=== PATIENT | female | born 1995 | race African-American/Black ===

== ENCOUNTER → 2020-01-04 13:07 | Outpatient (BNVA) | payer OTHER, SELFPAY | PROVIDERS: Visit Provider Obstetrics & Gynecology | DX: N92.6 Irregular menstruation, unspecified (principal) | CPT/HCPCS: 99212 ==

== ENCOUNTER 2020-03-20 12:53 | Outpatient (REF) | payer OTHER, SELFPAY ==
--- NOTE | 2020-03-20 13:02 | XR_ITS ---
EXAMINATION: XR KNEE, LEFT CLINICAL INFORMATION: Pain COMPARISON: None TECHNIQUE: Four views of the left knee. FINDINGS: Bone alignment is normal. No fracture or dislocation is seen. The joint spaces are normal. There is question of a subchondral cyst in the inferior patella. This measures 5 x 10 mm. There is no joint effusion. XR/XR knee LT 4V IMPRESSION: Question small subchondral cyst in the inferior patella otherwise unremarkable exam.
== END 2020-03-20 12:54 | disposition home or self-care (01) ==
LOC: HO.XRAY 12:53
PROVIDERS: Visit Provider Internal Medicine
DX: M25.562 Pain in left knee (principal)
CPT/HCPCS: 73564

== ENCOUNTER 2020-03-27 09:58 | Outpatient (REF) | payer OTHER, SELFPAY ==
[2020-03-28 13:32] LABS: C. trachomatis RNA TMA NOT DETECTED (NOT DETECTED); N. gonorrhoeae RNA TMA NOT DETECTED (NOT DETECTED)
== END 2020-03-27 09:59 | disposition home or self-care (01) ==
LOC: HO.LAB 09:58
PROVIDERS: PCP Internal Medicine; Visit Provider Advanced Practice Midwife
DX: Z01.419 Encounter for gynecological examination (general) (routine) without abnormal findings (principal); N94.6 Dysmenorrhea, unspecified; Z80.3 Family history of malignant neoplasm of breast
CPT/HCPCS: 36415; 87491; 87591; 88142

== ENCOUNTER → 2020-04-13 11:06 | Outpatient (BNVA) | payer OTHER, SELFPAY | PROVIDERS: Visit Provider Physician Assistant | DX: M70.42 Prepatellar bursitis, left knee (principal) | CPT/HCPCS: 99202 ==

== ENCOUNTER → 2020-05-11 11:24 | Outpatient (BNVA) | payer OTHER, SELFPAY | PROVIDERS: PCP Internal Medicine; Visit Provider Physician Assistant | DX: M70.42 Prepatellar bursitis, left knee (principal) | CPT/HCPCS: 99212 ==

== ENCOUNTER → 2020-05-15 09:04 | Outpatient (BNVA) | payer OTHER, SELFPAY | PROVIDERS: PCP Internal Medicine; Visit Provider Advanced Practice Midwife ==

== ENCOUNTER 2020-05-24 08:00 | Outpatient (RCR) | payer OTHER, SELFPAY ==
--- NOTE | 2020-04-24 15:48 | MHC.PT.EP ---
[facility] [place] Office [place] Office [place] Office [address] Mitul Armando [address] [phone] F: [phone] F: [phone] F: [phone] F: [phone] Physical Therapy Plan of Care Date of Evaluation: 04/24/20 Date of Surgery: NA Diagnosis: PERIPATELLAR BUSITIS 05/11 MD FOLLOW-UP Assessment: D'ANDRES ARRIVES S/P FALL WITH ROTATIONAL LUIS. UPON EXAM SHE DEMONSTRATES LATERAL LAXITY AND PAIN AND EDEMA THRU JOINT; SHE DEMONSTRATES IMPAIRMENTS OF DECREASED ROM AND STRENGTH, ALTERED GAIT AND BALANCE, INCREASED EDEMA AND PAIN. FUNCTIONAL LIMITATIONS INCLUDE DECREASED ABILITY TO PERFORM SQUATTING, STATIC STANDING AND STAIR MANAGEMENT. SHE REPORTS DECREASED PARTICIPATION IN FITNESS AND RECREATION ACTIVITIES, DECREASED ABILTIY TO PERFORM WORK TASKS AND DISRUPTED SLEEP. Frequency and Duration: The patient will be seen 2 X WEEK FOR 5 WEEKS Short Term Goals: INITIATE HEP AND SELF MANAGEMENT OF SYMPTOMS IN 2 WEEKS Tub Puller Goals: TO PERFORM FULL FUNCTIONAL SQUAT WITH APPROPRIATE FORM IN 5 WEEKS TO RETURN TO FITNESS PROGRAM AT [facility] IN 5 WEEKS TO DEMONSTRATE LIFTING FROM FLOOR TO WAIST WITH A MINIMUM OF 20# WITH CORRECT BODY MECHANICS AND PAIN NO GREATER THAN 2/10 IN 5 WEEKS TO DEMONSTRATE FULL (5/5) LE STRENGTH, EQUAL MIO IN 5 WEEKS Treatment Plan: Modalities to reduce pain, spasms and effusion. Manual therapy to restore motion and function. Therapeutic exercise to improve strength and flexibility. Neuromuscular re-education for posture and balance. Therapeutic activities to return to functional activities of daily living. Electronically signed by: FEROZ HUMMEL PT, DPT Please sign and return to therapist. Thank you for your referral.
== END 2020-06-27 09:00 | disposition other institution (70) ==
LOC: HO.PT 08:00
PROVIDERS: PCP Internal Medicine; Visit Provider Physician Assistant
DX: M70.42 Prepatellar bursitis, left knee (principal)
CPT/HCPCS: 97014; 97033; 97110; 97112; 97140; 97161

== ENCOUNTER 2020-06-14 13:54 | Outpatient (REF) | payer OTHER, SELFPAY ==
--- NOTE | ~2020-06-14 | US_ITS ---
EXAMINATION: US DIAGNOSTIC ULTRASOUND BREAST, RIGHT CLINICAL INFORMATION: Several months history upper right breast pain. Age 25. No prior breast imaging. Family history breast cancer grandmother is a maternal aunt. No discharge or palpable mass. COMPARISON: None. TECHNIQUE: Ultrasound right breast is targeted to the areas of clinical concern with imaging 7:00 through 3:00 position. Grayscale imaging and color Doppler are performed without and with harmonics. FINDINGS: There is no focal suspicious finding. There is no cystic or solid mass, architectural abnormality, duct ectasia, or edema in the soft tissue planes. Results are discussed with the patient at time of visit. The right breast pain should be managed based on the clinical impression. US/US breast RT limited IMPRESSION: Normal study. ASSESSMENT: BI-RADS 1: Negative RECOMMENDATION: 1. Patient's right breast pain should be managed based on the clinical impression. If there is clinically suspicious finding, then surgical consult may be considered for further clinical assessment and management. 2. Otherwise, routine annual screening mammography, beginning age 40, or earlier as clinical risk factors warrant. This patient's information was entered into a reminder system with a target due date for their next mammogram.
== END 2020-06-14 13:55 | disposition home or self-care (01) ==
LOC: HO.MAMMO 13:54
PROVIDERS: PCP Internal Medicine; Visit Provider Advanced Practice Midwife
DX: N64.4 Mastodynia (principal)
CPT/HCPCS: 76642

== ENCOUNTER → 2020-06-28 11:35 | Outpatient (BNVA) | payer OTHER, SELFPAY | PROVIDERS: PCP Internal Medicine; Visit Provider Advanced Practice Midwife ==

== ENCOUNTER 2021-03-28 10:22 | Outpatient (REF) | payer OTHER, SELFPAY ==
[2021-03-28 15:50] LABS: CT PCR NOT DETECTED (Not Detect.); NG PCR NOT DETECTED (Not Detect.)
== END 2021-03-28 10:23 | disposition home or self-care (01) ==
LOC: HO.LNP 10:22
PROVIDERS: PCP Internal Medicine; Visit Provider Advanced Practice Midwife
DX: Z01.419 Encounter for gynecological examination (general) (routine) without abnormal findings (principal); Z11.3 Encounter for screening for infections with a predominantly sexual mode of transmission
CPT/HCPCS: 87491; 87591

== ENCOUNTER 2021-05-28 09:45 | Outpatient (REF) | payer OTHER, SELFPAY ==
[2021-05-28 10:02] LABS: MANUAL DIFF FLAG NO
[2021-05-28 10:33] LABS: Appearance Urine CLEAR; Color Urine YELLOW; Glucose Urine UA NEG (NEG); Leukocyte Esterase Urine NEG (NEG); Nitrite Urine NEG (NEG); Specific Gravity - Urine 1.015 (1.005-1.025); Urine Blood NEG (NEG); Urine Ketones NEG (NEG); Urine Protein NEG (NEG-TRACE)
[2021-05-28 10:46] LABS: Basophils Percent Auto 0.4 % (0-2); Eosinophils Absolute Auto 0.3 X10*3/uL (0.0-0.4); Eosinophils Percent Auto 5.9 % (0-4); Hematocrit 36.8 % (37.0-47.0); Hemoglobin 11.5 g/dl (12.0-16.0); Imm Gran Abs Auto 0.03 X10*3/uL (0.00-0.03); Imm Gran Pct Auto 0.6 % (0.0-0.4); Lymphocytes Absolute Auto 1.8 X10*3/uL (1.2-4.9); Lymphocytes Percent Auto 35.2 % (20-40); Mean Corpuscular HGB Conc 31.3 g/dl (31.0-35.0); Mean Corpuscular Hemoglobin 25.7 pg (27.0-33.0); Mean Corpuscular Volume 82.3 fL (80.0-98.0); Mean Platelet Volume 9.5 fL (9.4-12.3); Monocytes Absolute Auto 0.3 X10*3/uL (0.1-1.2); Monocytes Percent Auto 5.5 % (2-11); Neutrophils Absolute Auto 2.7 x10*3/uL (2.0-8.3); Neutrophils Percent Auto 52.4 % (45-73); Platelet Count 312 X10*3/uL (160-400); Red Blood Count 4.47 X10*6/uL (4.20-5.50); Red Cell Distribution Width 14.9 % (11.0-16.0); White Blood Count 5.1 X10*3/uL (4.8-10.8)
[2021-05-28 11:22] LABS: Alanine Aminotransferase 11 U/L (0-31); Albumin Level 4.1 g/dL (3.5-5.0); Alkaline Phosphatase 96 U/L (39-117); Anion Gap 14 (12-20); Aspartate Amino Transferase 15 U/L (5-31); Bilirubin Total 0.7 mg/dL (0.0-1.0); Blood Urea Nitrogen 11 mg/dL (9-16); Calcium 9.2 mg/dL (8.4-10.2); Carbon Dioxide 20 mmol/L (22-29); Chloride 107 mmol/L (96-108); Cholesterol 170 mg/dL; Estimated Glomerular Filt Rate > 60; Glucose Random 81 mg/dL (60-115); HDL Cholesterol 52 mg/dL; LDL Cholesterol Calculated 101 mg/dl; Potassium 4.5 mmol/L (3.3-5.1); Sodium 136 mmol/L (135-145); Total Protein 7.7 g/dL (6.5-8.0); Triglycerides 88 mg/dL
[2021-05-28 11:45] LABS: Free T4 (Free Thyroxine) 1.19 ng/dL (0.71-1.85); Thyroid Stimulating Hormone 0.79 uIU/mL (0.32-4.0); Vitamin D 25-OH Total 6.1 ng/mL (>30)
== END 2021-05-28 09:46 | disposition home or self-care (01) ==
LOC: HO.LAB 09:45
PROVIDERS: PCP Internal Medicine; Visit Provider Internal Medicine
DX: Z13.220 Encounter for screening for lipoid disorders (principal); E05.00 Thyrotoxicosis with diffuse goiter without thyrotoxic crisis or storm; J45.909 Unspecified asthma, uncomplicated; E55.9 Vitamin D deficiency, unspecified
CPT/HCPCS: 36415; 80053; 80061; 81003; 82306; 84439; 84443; 85025

== ENCOUNTER 2021-06-25 15:26 | Outpatient (REF) | payer OTHER, SELFPAY ==
[2021-06-25 16:15] LABS: MANUAL DIFF FLAG NO
[2021-06-25 16:25] LABS: Basophils Percent Auto 0.5 % (0-2); Eosinophils Absolute Auto 0.3 X10*3/uL (0.0-0.4); Hematocrit 35.3 % (37.0-47.0); Hemoglobin 11.1 g/dl (12.0-16.0); Imm Gran Abs Auto 0.01 X10*3/uL (0.00-0.03); Imm Gran Pct Auto 0.2 % (0.0-0.4); Lymphocytes Absolute Auto 1.8 X10*3/uL (1.2-4.9); Lymphocytes Percent Auto 31.4 % (20-40); Mean Corpuscular HGB Conc 31.4 g/dl (31.0-35.0); Mean Corpuscular Hemoglobin 25.2 pg (27.0-33.0); Monocytes Absolute Auto 0.4 X10*3/uL (0.1-1.2); Neutrophils Absolute Auto 3.3 x10*3/uL (2.0-8.3); Neutrophils Percent Auto 56.9 % (45-73); Platelet Count 282 X10*3/uL (160-400); Red Blood Count 4.41 X10*6/uL (4.20-5.50); Red Cell Distribution Width 14.9 % (11.0-16.0); White Blood Count 5.8 X10*3/uL (4.8-10.8)
== END 2021-06-25 15:27 | disposition home or self-care (01) ==
LOC: HO.LAB 15:26
PROVIDERS: PCP Internal Medicine; Visit Provider Internal Medicine Pulmonary Disease
DX: Z91.09 Other allergy status, other than to drugs and biological substances (principal); J45.909 Unspecified asthma, uncomplicated; G47.33 Obstructive sleep apnea (adult) (pediatric)
CPT/HCPCS: 36415; 85025; 86003

== ENCOUNTER → 2021-08-06 11:20 | Outpatient (REF) | payer OTHER, SELFPAY | LOC: HO.SL 11:20 | PROVIDERS: PCP Internal Medicine; Visit Provider Internal Medicine Pulmonary Disease | DX: G47.33 Obstructive sleep apnea (adult) (pediatric) (principal) | CPT/HCPCS: 95806 ==

== ENCOUNTER → 2022-03-05 15:31 | Outpatient (BNVA) | payer OTHER, SELFPAY | PROVIDERS: PCP Internal Medicine; Visit Provider Internal Medicine Pulmonary Disease | DX: Z13.89 Encounter for screening for other disorder (principal) ==

== ENCOUNTER 2023-03-18 15:45 | Outpatient (AMB) | payer OTHER, SELFPAY ==
[2023-03-18 15:48] VITALS: BP 110/80; PULSE 110; O2SAT 96; BMI 36.9
--- NOTE | 2023-03-18 15:48 | MHC.PC.OV ---
Vital Signs 03/18/23 15:48 Height 5 ft 3 in Weight 208 lb 2 oz BMI 36.9 BP 110/80 Blood Pressure Location Lt brachial Position Sitting Pulse 110 H Pulse Source Pulse Oximeter Pulse Oximetry (%) 96 Oxygen Delivery Method Room Air Intake Visit Reasons: Annual Exam Systems Security Analyst Required: No Accompanied by: Self / Same As Patient Allergies cat dander [CAT] Allergy (Unknown, Verified 03/18/23 16:26) ITCHY EYES SEASONAL ALLERGIES Allergy (Intermediate, Uncoded 03/18/23 16:26) ITCHY EYES Medication List - Last Reconciled 03/18/23 by Tunde Deal MD albuterol sulfate 2.5 mg (3 mL) inhalation QID PRN 30 days albuterol sulfate 90 mcg/actuation 2 puffs inhalation Q6H PRN betamethasone valerate 0.1% 1 appl topical BID PRN 7 days cholecalciferol (vitamin D3) 50 mcg PO DAILY 90 days fluticasone propionate 50 mcg/actuation 1 spray intranasal DAILY hydroxyzine HCl 25 mg PO BEDTIME PRN loratadine 10 mg PO DAILY PRN methimazole 2.5 mg PO DAILY miconazole nitrate 2% 1 spray topical BID PRN 15 days montelukast 10 mg PO QPM [NEBULIZER and all related supplies As directed] nebulizers As directed Symbicort 160-4.5 mcg/actuation (budesonide-formoterol) 2 puffs inhalation BID 30 days NS triamcinolone acetonide 0.025% 1 appl topical BID Tobacco use date assessed: 03/18/23 Dental Screening Dental Screen Date: 03/18/23 Did you have a dental visit in the last 12 months?: Yes Did you have a dental problem in the last 6 months where you did not have access to dental care?: No Was dental information given to patient?: Patient has dentist HPI Annual Exam HPI Details Patient comes in today for her annual physical examination States that she feels okay and that her asthma has been well-controlled on her current medication regimen lately Relates that she has been breaking out in acne lesions over her back off and on for the past few months and would like to know if there is anything she can take or use to keep them from recurring She denies any headaches or dizziness Denies any chest pains, no SOB No nausea/vomiting, no abdominal pain No change in bowel habits noted Denies any acute urinary symptoms She continues to follow up with Dr. Cardoza for her Graves disease/hyperthyrodism and has been clinically stable on Methimazole 2.5 mg daily and now just sees Dr. Cardoza once a year for routine follow up States that she is up-to-date with her annual pap smear and gynecology exam [facility] Medical History (Updated 03/19/23 @ 08:45 by Tunde Deal MD) Vitamin D deficiency Tinea pedis Obesity (BMI 30-39.9) Anxiety Allergic rhinitis Asthma Graves' disease Seasonal allergies Hyperthyroidism Surgical History No pertinent past surgical history Family History Father Healthy adult Mother Healthy adult Maternal Grandmother Breast cancer Paternal Grandmother Breast cancer Maternal Aunt Breast cancer Social History Housing: Apartment Alcohol intake: never Patient Tobacco Use Status: Never used Tobacco e-Cigarette/Vaping Use: Never Used Second Hand Smoke Exposure: No service: No Current occupational status: employed Sexual orientation: Lesbian/Lipscomb/Homosexual Gender identity: Female Cognitive needs: No Hearing needs: No Vision needs: No Female Reproductive History Menstrual Age of Menarche: 13 Questionnaire PHQ-9 Over the last 2 weeks, how often have you been bothered by any of the following problems? 1. Little interest or pleasure in doing things: not at all 2. Feeling down, depressed, or hopeless: not at all 3. Trouble falling or staying asleep, or sleeping too much: not at all 4. Feeling tired or having little energy: not at all 5. Poor appetite or overeating: not at all 6. Feeling bad about yourself - or that you are a failure or have let yourself or your family down: not at all 7. Trouble concentrating on things, such as reading the newspaper or watching television: not at all 8. Moving or speaking so slowly that other people could have noticed. Or the opposite - being so fidgety or restless that you have been moving around a lot more than usual: not at all 9. Thoughts that you would be better off or of hurting yourself in some way: not at all Total score: 0 Depression Screening Interpretation: Negative Depression Screening Done: Yes 16915 - PHQ-9 Billing: Yes Source: Developed by Drs. Max Mcdonald, Charito Ramirez, Allan Davis and colleagues, with an educational bo from [employer]. Thrive Questionnaire Date Thrive assessed: 03/18/23 I am a: Patient What is your living situation today?: I have a steady place to live Within the past 12 months, did the food you bought not last and you didn't have the money to get more?: Never true Within the past 12 months, did you worry whether your food would run out before you got money to buy more?: Never true Do you have trouble paying for medicines?: No Do you have trouble getting transportation to medical appointments?: No Do you have trouble paying your heating and electricity bill?: No Do you have trouble taking care of your child, family member or friend?: No Do you have trouble with day-to-day activities such as bathing, preparing meals, shopping, managing finances, etc.?: No Are you currently unemployed and looking for a job?: No Are you interested in more education?: No Please select the resources that you would like help with: None Currently or been in a relationship where the following occur: no concerns reported AUDIT C Alcohol Use Questionnaire (AUDIT-C) 1. How often do you have a drink containing alcohol?: Never 3. How often do you have six or more drinks on one occasion?: Never Total Score: 0 Score Reviewed/Action Taken: Yes CRISTÓBAL-7 AMB Questionnaire CRISTÓBAL-7 Date CRISTÓBAL - 7 assessed: 03/18/23 Feeling nervous, anxious, or on edge: 0 = Not at all Not being able to stop or control worryin = Not at all Worrying too much about different things: 0 = Not at all Trouble relaxin = Not at all Being so restless that it is hard to sit still: 0 = Not at all Becoming easily annoyed or irritable: 0 = Not at all Feeling afraid as if something awful might happen: 0 = Not at all Total CRISTÓBAL-7 score (0-4 normal; 5-9 mild; 10-14 moderate; 15-21 severe): 0 Source: Developed by Drs. Max Mcdonald, Charito Ramirez, Allan Davis and colleagues, with an educational bo from [employer]. Review of Systems Const Denies chills, Denies fatigue, Denies fever(s), Denies headache(s) and Denies malaise Eyes Denies blurry vision, Denies change in vision, Denies irritation and Denies itchy eyes ENT Denies dysphagia, Denies dizziness, Denies otalgia, Denies headache(s), Denies nasal congestion, Denies neck pain, Denies odynophagia, Denies sinus pain and Denies sore throat Card Denies chest pain, Denies rapid heart rate, Denies irregular heart rhythm, Denies palpitations and Denies dyspnea Resp Denies chest congestion, Denies cough, Denies dyspnea and Denies wheezing GI Denies abdominal pain, Denies bloating, Denies constipation, Denies dysphagia, Denies heartburn, Denies diarrhea, Denies nausea, Denies odynophagia and Denies vomiting Denies hematuria, Denies urinary frequency, Denies dysuria, Denies urinary incontinence and Denies urinary urgency Musc Denies back pain, Denies arthralgias, Denies joint swelling, Denies muscle weakness and Denies neck pain Skin/Breast Reports acne (relates (+) multiple scattered acne lesions over the back, on and off), Denies breast pain, Denies breast mass, Denies change in pigmentation, Denies rash and Denies unusual bruising Neuro Denies dizziness, Denies headache(s) and Denies paresthesias Psych Denies anxiety and Denies depression Endo Denies fatigue and Denies palpitations Gregory/Lymph Denies easy bruising Aller/Immun Denies itchy eyes and Denies wheezing Physical exam (Primary Care) Vital Signs: Last Vital Signs Pulse 110 H 03/18/23 15:48 BP 110/80 03/18/23 15:48 Pulse Ox 96 03/18/23 15:48 Oxygen Delivery Method Room Air 03/18/23 15:48 BMI result Body Mass Index 36.9 Tobacco/Smoking Status: Tobacco use Status Tobacco use date assessed 03/18/23 03/18/23 15:54 Patient Tobacco Use Status Never used Tobacco 03/18/23 15:54 e-Cigarette/Vaping Use Never Used 03/18/23 15:54 PHQ-9: PHQ-9 Score PHQ-9: Total score 0 03/18/23 16:27 Depression Screening Interpretation: Negative Thrive Assessment: Date of Thrive Assessment Date Thrive assessed 03/18/23 03/18/23 15:54 Currently or been in a relationship where the following occur: no concerns reported Const General: no acute distress, alert and awake Orientation/consciousness: patient oriented x3 HENMT Head: Yes normocephalic and Yes atraumatic Ears: external ears normal, TM's normal bilaterally and EAC's normal General nose exam: No nasal discharge present Face and sinus: Yes normal facial exam and Yes sinuses nontender Teeth and gingiva: dentition normal Throat: Yes posterior oropharynx normal and Yes tonsils normal (no TP congestion) Eyes Eyelids: Yes eyelids normal Conjunctivae: conjunctivae normal Pupils: Equal, round and reactive pupils present EOM: EOMs intact bilaterally Neck Neck: Yes no lymphadenopathy and Yes supple Thyroid: Thyroid normal Resp Auscultation: clear to auscultation bilaterally, no rales and no wheezes Cardio Rate: regular rate Rhythm: regular rhythm Heart sounds: no murmurs GI Palpation (GI): Soft to palpation, nontender and No hepatosplenomegaly present Auscultation: normal bowel sounds General: Yes no CVA tenderness Back/Spine/Pelvis Back: no CVA tenderness Thoracic/Lumbar Spine: thoracic and lumbar spine normal to inspection Skin Lesions: no lesions (no acne lesions on her back noted at present) Rashes: no rashes Neuro General: patient oriented x3, moves all extremities, no focal motor deficits and CN's II-XI intact bilaterally Cranial nerves: Yes Equal, round and reactive pupils present Cognition (Neuro): normal cognition Gait exam (Neuro): Normal gait present Extrem General: Yes no clubbing, cyanosis or edema Assessment and Plan Assessment & Plan (1) Annual physical exam: Code(s): Z00.00 - Encounter for general adult medical examination without abnormal findings Plan: Check labs Patient is up-to-date with her annual pap smear and gynecology exam (2) Graves' disease: Comment: Thyroid US done in November 2019 showed (+) diffuse goiter with a non-specific left thyroid nodule and recommend continuing surveillance with regular ultrasound; Had FNA Bx in 03/2021 - results not available Code(s): E05.00 - Thyrotoxicosis with diffuse goiter without thyrotoxic crisis or storm Plan: Patient is clinically stable on current regimen She follows up with Dr. Cardoza at [facility] for this and now sees him once a year for routine follow up and monitoring Continue Methimazole 2.5 mg QD Will check TFTs for follow up (3) Asthma: Code(s): J45.909 - Unspecified asthma, uncomplicated Qualifiers: Asthma severity: unspecified severity Asthma persistence: persistent Asthma complication type: uncomplicated Qualified Code(s): J45.909 - Unspecified asthma, uncomplicated Plan: Patient's asthma appears stable on her current inhaler regimen Continue Symbicort 160-4.5 mcg 2 inhalations BID and Albuterol HFA 1 to 2 inhalations Q 6 hours PRN [place] with [place] [facility] (4) Acne: Code(s): L70.9 - Acne, unspecified Qualifiers: Acne type: unspecified acne Qualified Code(s): L70.9 - Acne, unspecified Plan: She reports breaking out in multiple acne lesions on and off over her back for the past few months Will have her start taking oral Doxycycline 100 mg BID x 10 days BUT have advised her to start taking this ONLY when she breaks out in acne lesions If this continues despite Abx Tx, will then consider prophylactic Tx for a period of time; will also consider referral to dermatology if her condition persists despite above intervention(s) (5) Allergic rhinitis: Code(s): J30.9 - Allergic rhinitis, unspecified Qualifiers: Allergic rhinitis trigger: unspecified Allergic rhinitis seasonality: unspecified Qualified Code(s): J30.9 - Allergic rhinitis, unspecified Plan: Continue Loratadine 10 mg QD PRN, Fluticasone 50 mcg nasal spray QD PRN and Montelukast 10 mg QD (6) Vitamin D deficiency: Code(s): E55.9 - Vitamin D deficiency, unspecified Plan: She has been advised that her Vitamin D level was low on her previous labs and she should be taking supplements to correct this Will start her on Vitamin D3 2000 units QD Will recheck her Vitamin D level for follow up (7) Left knee pain: Code(s): M25.562 - Pain in left knee Qualifiers: Chronicity: acute Qualified Code(s): M25.562 - Pain in left knee Plan: X-rays done in March 2020 revealed (+) small subchondral cyst in the inferior patella; xrays were otherwise normal Has been seen by orthopedics and diagnosed with prepatellar bursitis previously States that her knee symptoms have improved with physical therapy in the past; will refer to PT again as needed (8) Anxiety: Code(s): F41.9 - Anxiety disorder, unspecified Plan: Continue Hydroxyzine 25 mg Q HS PRN (9) Obesity (BMI 30-39.9): Code(s): E66.9 - Obesity, unspecified Plan: Reinforced diet/exercise as tolerated/lose weight Plan Follow up in 6 months Orders: Orders Comprehensive Met. Panel 03/18/23 Z00.00 - Encounter for general adult medical examination without abnormal findings Thyroid Stimulating Hormone 03/18/23 E05.00 - Thyrotoxicosis with diffuse goiter without thyrotoxic crisis or storm, Z00.00 - Encounter for general adult medical examination without abnormal findings Cholesterol 03/18/23 Z00.00 - Encounter for general adult medical examination without abnormal findings Complete Blood Count Auto Diff 03/18/23 D64.9 - Anemia, unspecified, Z00.00 - Encounter for general adult medical examination without abnormal findings Free T4 (Free Thyroxine) 03/18/23 E05.00 - Thyrotoxicosis with diffuse goiter without thyrotoxic crisis or storm, Z00.00 - Encounter for general adult medical examination without abnormal findings Vitamin D 25-OH Total 03/18/23 E55.9 - Vitamin D deficiency, unspecified, Z00.00 - Encounter for general adult medical examination without abnormal findings UA CC w/rflx Micro + Cult 03/18/23 R30.0 - Dysuria, Z00.00 - Encounter for general adult medical examination without abnormal findings Medications: New doxycycline monohydrate To be taken only when acne lesions on back flare up 100 mg PO BID 10 days 20 caps 0RF acne lesions on back cholecalciferol (vitamin D3) 50 mcg PO DAILY 90 days 90 caps 3RF E55.9 - Vitamin D deficiency, unspecified cholecalciferol (vitamin D3) 50 mcg PO DAILY 90 days 90 caps 3RF E55.9 - Vitamin D deficiency, unspecified Coding Level of Care Code Est Pt Prev Care [id number]([id number]) Diagnoses Annual physical exam Z00.00 Graves' disease E05.00 Persistent asthma without complication, unspecified asthma severity J45.909 Asthma severity: unspecified severity Asthma persistence: persistent Asthma complication type: uncomplicated Acne, unspecified acne type L70.9 Acne type: unspecified acne Allergic rhinitis, unspecified seasonality, unspecified trigger J30.9 Allergic rhinitis trigger: unspecified Allergic rhinitis seasonality: unspecified Vitamin D deficiency E55.9 Acute pain of left knee M25.562 Chronicity: acute Anxiety F41.9 Obesity (BMI 30-39.9) E66.9
== END 2023-03-18 16:30 | disposition home or self-care (01) ==
PROVIDERS: PCP Internal Medicine; Visit Provider Internal Medicine
DX: Z00.00 Encounter for general adult medical examination without abnormal findings (principal); E05.00 Thyrotoxicosis with diffuse goiter without thyrotoxic crisis or storm; E66.9 Obesity, unspecified; Z68.36 Body mass index [BMI] 36.0-36.9, adult; J45.909 Unspecified asthma, uncomplicated; L70.9 Acne, unspecified; J30.9 Allergic rhinitis, unspecified; E55.9 Vitamin D deficiency, unspecified; M25.562 Pain in left knee; F41.9 Anxiety disorder, unspecified
CPT/HCPCS: 99395

== ENCOUNTER 2023-03-18 16:35 | Outpatient (REF) | payer OTHER, SELFPAY ==
[2023-03-18 16:51] LABS: MANUAL DIFF FLAG NO
[2023-03-18 18:16] LABS: Basophils Absolute Auto 0.1 X10*3/uL (0.0-0.2); Eosinophils Absolute Auto 0.4 X10*3/uL (0.0-0.4); Eosinophils Percent Auto 7.1 % (0-4); Hematocrit 38.8 % (37.0-47.0); Hemoglobin 12.4 g/dl (12.0-16.0); Imm Gran Abs Auto 0.01 X10*3/uL (0.00-0.03); Imm Gran Pct Auto 0.2 % (0.0-0.4); Lymphocytes Absolute Auto 2.2 X10*3/uL (1.2-4.9); Lymphocytes Percent Auto 41.7 % (20-40); Mean Corpuscular Hemoglobin 25.3 pg (27.0-33.0); Mean Platelet Volume 9.8 fL (9.4-12.3); Monocytes Absolute Auto 0.2 X10*3/uL (0.1-1.2); Monocytes Percent Auto 4.2 % (2-11); Neutrophils Absolute Auto 2.4 x10*3/uL (2.0-8.3); Neutrophils Percent Auto 45.8 % (45-73); Platelet Count 365 X10*3/uL (160-400); Red Blood Count 4.91 X10*6/uL (4.20-5.50); Red Cell Distribution Width 14.3 % (11.0-16.0); White Blood Count 5.2 X10*3/uL (4.8-10.8)
[2023-03-18 18:17] LABS: Appearance Urine Cloudy; Color Urine Yellow; Glucose Urine UA Negative (Negative); Leukocyte Esterase Urine Negative (Negative); Nitrite Urine Negative (Negative); Specific Gravity - Urine >= 1.030 (1.005-1.025); UMIC TRIGGER UACC YES; Urine Blood Large (3+) (Negative); Urine Ketones Trace mg/dL (Negative); Urine Protein Negative (Neg-Trace)
[2023-03-18 18:22] LABS: Bacteria Urine Trace (None Seen); Hyaline Casts Urine 0-2 /LPF (0-2); WBC Urine 0-5 /HPF (0-5)
[2023-03-18 18:36] LABS: Alanine Aminotransferase 13 U/L (0-31); Albumin Level 4.4 g/dL (3.5-5.0); Alkaline Phosphatase 105 U/L (39-117); Anion Gap 12 (12-20); Aspartate Amino Transferase 13 U/L (5-31); Bilirubin Total 0.5 mg/dL (0.0-1.0); Blood Urea Nitrogen 11 mg/dL (9-16); Calcium 9.5 mg/dL (8.4-10.2); Carbon Dioxide 25 mmol/L (22-29); Chloride 105 mmol/L (96-108); Cholesterol 152 mg/dL (<200); Estimated Glomerular Filt Rate > 60; Glucose Random 85 mg/dL (60-115); Potassium 3.8 mmol/L (3.3-5.1); Sodium 138 mmol/L (135-145)
[2023-03-18 18:51] LABS: Free T4 (Free Thyroxine) 1.16 ng/dL (0.71-1.85); Thyroid Stimulating Hormone 0.59 uIU/mL (0.32-4.0)
== END 2023-03-18 16:36 | disposition home or self-care (01) ==
LOC: HO.LAB 16:35
PROVIDERS: PCP Internal Medicine; Visit Provider Internal Medicine
DX: Z00.00 Encounter for general adult medical examination without abnormal findings (principal); E05.00 Thyrotoxicosis with diffuse goiter without thyrotoxic crisis or storm; E55.9 Vitamin D deficiency, unspecified; D64.9 Anemia, unspecified
CPT/HCPCS: 36415; 80053; 81001; 82306; 82465; 84439; 84443; 85025

== ENCOUNTER 2024-01-20 17:01 | Outpatient (AMB) | payer OTHER, SELFPAY ==
[2024-01-20 17:08] VITALS: BP 118/70; PULSE 95; O2SAT 99; BMI 38.3
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
== END 2024-01-20 17:42 | disposition home or self-care (01) ==
PROVIDERS: PCP Internal Medicine; Visit Provider Internal Medicine
DX: S16.1XXA Strain of muscle, fascia and tendon at neck level, initial encounter (principal); S39.012A Strain of muscle, fascia and tendon of lower back, initial encounter; V89.2XXS Person injured in unspecified motor-vehicle accident, traffic, sequela; Z04.3 Encounter for examination and observation following other accident

== ENCOUNTER → 2024-01-20 17:01 | Outpatient (BNVA) | payer OTHER, SELFPAY | PROVIDERS: PCP Internal Medicine; Visit Provider Internal Medicine ==

== ENCOUNTER 2024-03-24 16:07 | Outpatient (AMB) | payer OTHER, SELFPAY ==
--- NOTE | 2024-03-24 16:35 | A.OFFPC_ITS ---
Vital Signs 03/24/24 16:36 Height 5 ft 3 in Weight 223 lb 2 oz BMI 39.5 BP 120/82 Blood Pressure Location Lt brachial Position Sitting Pulse 99 Pulse Source Pulse Oximeter Pulse Oximetry (%) 97 Oxygen Delivery Method Room Air Intake Visit Reasons: annual exam Registered Dietician Required: No Accompanied by: Self / Same As Patient Allergies cat dander [CAT] Allergy (Unknown, Verified 03/24/24 17:04) ITCHY EYES SEASONAL ALLERGIES Allergy (Intermediate, Uncoded 03/24/24 17:04) ITCHY EYES Medication List - Last Reconciled 03/24/24 by Tunde Deal MD albuterol sulfate 2.5 mg (3 mL) inhalation QID PRN 30 days albuterol sulfate 90 mcg/actuation 2 puffs inhalation Q6H PRN betamethasone valerate 0.1% 1 appl topical BID PRN 7 days cholecalciferol (vitamin D3) 50 mcg PO DAILY 90 days doxycycline monohydrate 100 mg PO BID 10 days fluticasone propionate 50 mcg/actuation 1 spray intranasal DAILY hydroxyzine HCl 25 mg PO BEDTIME PRN 90 days loratadine 10 mg PO DAILY PRN methimazole 2.5 mg PO DAILY miconazole nitrate 2% 1 spray topical BID PRN 15 days montelukast 10 mg PO QPM 90 days [NEBULIZER and all related supplies As directed] nebulizers As directed Symbicort 160-4.5 mcg/actuation (budesonide-formoterol) 2 puffs inhalation BID 30 days NS triamcinolone acetonide 0.025% 1 appl topical BID Tobacco use date assessed: 03/24/24 Dental Screening Dental Screen Date: 03/24/24 Did you have a dental visit in the last 12 months?: No Did you have a dental problem in the last 6 months where you did not have access to dental care?: No Was dental information given to patient?: Patient has dentist HPI annual exam HPI Details Patient comes in today for her annual physical examination States that she has been experiencing on and off pain over her right breast for a few weeks now Notes that the pain is mostly over the side of the breast just under the right axilla States that she has not noticed any masses or unusual lesions over her right breast lately and relates no swelling over her breast She also denies any recent injury or trauma to the side of her right breast / chest wall States that she feels okay otherwise She denies any headaches or dizziness Denies any chest pains, no increased shortness of breath No nausea/vomiting, no abdominal pain No change in bowel habits noted She denies any acute urinary symptoms She needs a few of her Rx refilled She last had her annual pap smear and gynecology exam back on 03/28/2020; she has an appointment scheduled with her cigar packer and sorter next month (April 2024) for follow up [facility] Medical History Vitamin D deficiency Tinea pedis Obesity (BMI 30-39.9) Anxiety Allergic rhinitis Asthma Graves' disease Seasonal allergies Hyperthyroidism Surgical History No pertinent past surgical history Family History Father Healthy adult Mother Healthy adult Maternal Grandmother Breast cancer Paternal Grandmother Breast cancer Maternal Aunt Breast cancer Social History Housing: Apartment Alcohol intake: never Patient Tobacco Use Status: Never used Tobacco e-Cigarette/Vaping Use: Never Used Second Hand Smoke Exposure: No service: No Current occupational status: employed Sexual orientation: Lesbian/Lipscomb/Homosexual Gender identity: Female Cognitive needs: No Hearing needs: No Vision needs: No Female Reproductive History Menstrual Age of Menarche: 13 Questionnaire PHQ-9 Over the last 2 weeks, how often have you been bothered by any of the following problems? 1. Little interest or pleasure in doing things: more than half the days 2. Feeling down, depressed, or hopeless: not at all 3. Trouble falling or staying asleep, or sleeping too much: not at all 4. Feeling tired or having little energy: several days 5. Poor appetite or overeating: not at all 6. Feeling bad about yourself - or that you are a failure or have let yourself or your family down: not at all 7. Trouble concentrating on things, such as reading the newspaper or watching television: not at all 8. Moving or speaking so slowly that other people could have noticed. Or the opposite - being so fidgety or restless that you have been moving around a lot more than usual: not at all 9. Thoughts that you would be better off or of hurting yourself in some way: not at all Total score: 3 Depression Screening Interpretation: Negative Depression Screening Done: Yes 56708 - PHQ-9 Billing: Yes Source: Developed by Drs. Max Mcdonald, Charito Ramirez, Allan Davis and colleagues, with an educational bo from [employer]. Thrive Questionnaire Date Thrive assessed: 03/24/24 I am a: Patient What is your living situation today?: I have a steady place to live Within the past 12 months, did the food you bought not last and you didn't have the money to get more?: Never true Within the past 12 months, did you worry whether your food would run out before you got money to buy more?: Never true Do you have trouble paying for medicines?: No Do you have trouble getting transportation to medical appointments?: No Do you have trouble paying your heating and electricity bill?: No Do you have trouble taking care of your child, family member or friend?: No Do you have trouble with day-to-day activities such as bathing, preparing meals, shopping, managing finances, etc.?: No Are you currently unemployed and looking for a job?: No Are you interested in more education?: Yes Please select the resources that you would like help with: None Currently or been in a relationship where the following occur: No concerns reported THRIVE Score: 0 AUDIT C Alcohol Use Questionnaire (AUDIT-C) 1. How often do you have a drink containing alcohol?: Monthly or less 2. How many drinks containing alcohol do you have on a typical day when you are drinking?: 1 or 2 3. How often do you have six or more drinks on one occasion?: Never Total Score: 1 Score Reviewed/Action Taken: Yes CRISTÓBAL-7 AMB Questionnaire CRISTÓBAL-7 Date CRISTÓBAL - 7 assessed: 03/24/24 Feeling nervous, anxious, or on edge: 0 = Not at all Not being able to stop or control worryin = Not at all Worrying too much about different things: 0 = Not at all Trouble relaxin = Not at all Being so restless that it is hard to sit still: 0 = Not at all Becoming easily annoyed or irritable: 0 = Not at all Feeling afraid as if something awful might happen: 0 = Not at all Total CRISTÓBAL-7 score (0-4 normal; 5-9 mild; 10-14 moderate; 15-21 severe): 0 Source: Developed by Drs. Max Mcdonald, Charito Ramirez, Allan Davis and colleagues, with an educational bo from [employer]. Review of Systems Const Denies chills, Denies fatigue, Denies fever(s), Denies headache(s) and Denies malaise Eyes Denies blurry vision, Denies change in vision, Denies irritation and Denies itchy eyes ENT Denies dysphagia, Denies dizziness, Denies otalgia, Denies headache(s), Denies nasal congestion, Denies neck pain, Denies odynophagia, Denies sinus pain and Denies sore throat Card Denies chest pain, Denies rapid heart rate, Denies irregular heart rhythm, Denies palpitations and Denies dyspnea Resp Denies chest congestion, Denies cough, Denies dyspnea and Denies wheezing GI Denies abdominal pain, Denies bloating, Denies constipation, Denies dysphagia, Denies heartburn, Denies diarrhea, Denies nausea, Denies odynophagia and Denies vomiting Denies hematuria, Denies urinary frequency, Denies dysuria, Denies urinary incontinence and Denies urinary urgency Musc Denies back pain, Denies arthralgias, Denies joint swelling, Denies muscle weakness and Denies neck pain Skin/Breast Reports breast pain (over the side of the right breast - see HPI), Denies breast mass, Denies change in pigmentation, Denies lesions, Denies rash and Denies unusual bruising Neuro Denies dizziness, Denies headache(s) and Denies paresthesias Psych Denies anxiety and Denies depression Endo Denies fatigue and Denies palpitations Gregory/Lymph Denies easy bruising Aller/Immun Denies itchy eyes and Denies wheezing Physical exam (Primary Care) Vital Signs: Last Vital Signs Pulse 99 03/24/24 16:36 BP 120/82 03/24/24 16:36 Pulse Ox 97 03/24/24 16:36 Oxygen Delivery Method Room Air 03/24/24 16:36 BMI result Body Mass Index 39.5 Tobacco/Smoking Status: Tobacco use Status Tobacco use date assessed 03/24/24 03/24/24 16:39 Patient Tobacco Use Status Never used Tobacco 03/24/24 16:39 e-Cigarette/Vaping Use Never Used 03/24/24 16:39 PHQ-9: PHQ-9 Score PHQ-9: Total score 3 03/24/24 17:08 Depression Screening Interpretation: Negative Thrive Assessment: Date of Thrive Assessment Date Thrive assessed 03/24/24 03/24/24 16:39 Currently or been in a relationship where the following occur: No concerns reported Const General: no acute distress, alert and awake Orientation/consciousness: patient oriented x3 HENMT Head: Yes normocephalic and Yes atraumatic Ears: external ears normal, TM's normal bilaterally and EAC's normal General nose exam: No nasal discharge present Face and sinus: Yes normal facial exam and Yes sinuses nontender Teeth and gingiva: dentition normal Throat: Yes posterior oropharynx normal and Yes tonsils normal (no TP congestion) Eyes Eyelids: Yes eyelids normal Conjunctivae: conjunctivae normal Pupils: Equal, round and reactive pupils present EOM: EOMs intact bilaterally Neck Neck: Yes supple and No lymphadenopathy Thyroid: Thyroid normal Chest Other: (+) mild tenderness over the lateral side of the right breast, just under the rigth axilla' no lesions, nodules or masses are palpated Resp Auscultation: clear to auscultation bilaterally, no rales and no wheezes Cardio Rate: regular rate Rhythm: regular rhythm Heart sounds: no murmurs GI Palpation (GI): Soft to palpation, nontender and No hepatosplenomegaly present Auscultation: normal bowel sounds General: Yes no CVA tenderness Back/Spine/Pelvis Back: no CVA tenderness Thoracic/Lumbar Spine: thoracic and lumbar spine normal to inspection Skin Lesions: no lesions Rashes: no rashes Neuro General: patient oriented x3, moves all extremities, no focal motor deficits and CN's II-XI intact bilaterally Cranial nerves: Yes Equal, round and reactive pupils present Cognition (Neuro): normal cognition Gait exam (Neuro): Normal gait present Extrem General: Yes no clubbing, cyanosis or edema Coding Level of Care Code Est Pt Prev Care 18-39y(95059) Diagnoses Annual physical exam Z00.00 Pain of right breast N64.4 Acne, unspecified acne type L70.9 Acne type: unspecified acne Persistent asthma without complication, unspecified asthma severity J45.909 Asthma complication type: uncomplicated Asthma persistence: persistent Asthma severity: unspecified severity Graves' disease E05.00 Allergic rhinitis, unspecified seasonality, unspecified trigger J30.9 Allergic rhinitis trigger: unspecified Allergic rhinitis seasonality: unspecified Anxiety F41.9 Obesity (BMI 30-39.9) E66.9 Additional Codes PHQ-9 - 38791 - PHQ-9 Billing: Yes ([id number]) Assessment & Plan Assessment & Plan (1) Annual physical exam: Code(s): Z00.00 - Encounter for general adult medical examination without abnormal findings Category: Medical Plan: Check labs She is due for her yearly gynecology exam and pap smear - is scheduled to follow up with her gynecology next month (2) Pain of right breast: Code(s): N64.4 - Mastodynia Category: Medical Plan: Will send patient for right breast mammogram for further evaluation (3) Acne: Code(s): L70.9 - Acne, unspecified Category: Medical Qualifiers: Acne type: unspecified acne Qualified Code(s): L70.9 - Acne, unspecified Plan: She reports breaking out in multiple acne lesions on and off over her back for a few months We sent in Rx for oral Doxycycline 100 mg BID x 10 days - have advised her to start taking this ONLY when she breaks out in acne lesions (4) Asthma: Code(s): J45.909 - Unspecified asthma, uncomplicated Category: Medical Qualifiers: Asthma complication type: uncomplicated Asthma persistence: persistent Asthma severity: unspecified severity Qualified Code(s): J45.909 - Unspecified asthma, uncomplicated Plan: Patient's asthma appears stable on her current inhaler regimen Continue Symbicort 160-4.5 mcg 2 inhalations BID and Albuterol HFA 1 to 2 inhalations Q 6 hours PRN Follow up with pulmonary at [facility] [place], [place] as scheduled (5) Graves' disease: Comment: Thyroid US done in November 2019 showed (+) diffuse goiter with a non-specific left thyroid nodule and recommend continuing surveillance with regular ultrasound; Had FNA Bx in 03/2021 - results not available Code(s): E05.00 - Thyrotoxicosis with diffuse goiter without thyrotoxic crisis or storm Category: Medical Plan: Patient is clinically stable on current regimen She follows up with Dr. Cardoza at [facility] [place] for this and now sees him once a year for routine follow up and monitoring Continue Methimazole 2.5 mg QD Will recheck her TFTs SHANTEL for follow up (6) Allergic rhinitis: Code(s): J30.9 - Allergic rhinitis, unspecified Category: Medical Qualifiers: Allergic rhinitis trigger: unspecified Allergic rhinitis seasonality: unspecified Qualified Code(s): J30.9 - Allergic rhinitis, unspecified Plan: Continue Loratadine 10 mg QD PRN, Fluticasone 50 mcg nasal spray QD PRN and Montelukast 10 mg QD (7) Anxiety: Code(s): F41.9 - Anxiety disorder, unspecified Category: Medical Plan: Continue Hydroxyzine 25 mg Q HS PRN (8) Obesity (BMI 30-39.9): Code(s): E66.9 - Obesity, unspecified Category: Medical Plan: Reinforced diet/exercise as tolerated/lose weight Orders: Orders Free T4 (Free Thyroxine) 03/24/24 E03.9 - Hypothyroidism, unspecified, Z00.00 - Encounter for general adult medical examination without abnormal findings MM tomosynthesis diagnostic RT 03/24/24 N64.4 - Mastodynia Complete Blood Count Auto Diff 03/24/24 D64.9 - Anemia, unspecified, Z00.00 - Encounter for general adult medical examination without abnormal findings Comprehensive [place]. Panel Fast 03/24/24 E78.00 - Pure hypercholesterolemia, unspecified, Z00.00 - Encounter for general adult medical examination without abnormal findings Lipid Panel 03/24/24 E78.00 - Pure hypercholesterolemia, unspecified, Z00.00 - Encounter for general adult medical examination without abnormal findings UA CC w/rflx Micro + Cult 03/24/24 R30.0 - Dysuria, Z00.00 - Encounter for general adult medical examination without abnormal findings Vitamin D 25-OH Total 03/24/24 E55.9 - Vitamin D deficiency, unspecified, Z00.00 - Encounter for general adult medical examination without abnormal findings Thyroid Stimulating Hormone 03/24/24 E03.9 - Hypothyroidism, unspecified, Z00.00 - Encounter for general adult medical examination without abnormal findings Medications: Changed From betamethasone valerate 0.1% 1 appl topical BID 7 days PRN 15 grams 0RF skin irritation R21 - Rash and other nonspecific skin eruption To betamethasone valerate 0.1% 1 appl topical BID PRN 45 grams 0RF skin irritation/rash R21 - Rash and other nonspecific skin eruption Refilled Symbicort 160-4.5 mcg/actuation (budesonide-formoterol) 2 puffs inhalation BID 30 days 10.2 grams 6RF NS doxycycline monohydrate To be taken only when acne lesions on back flare up 100 mg PO BID 10 days 20 caps 0RF acne lesions on back
[2024-03-24 16:36] VITALS: BP 120/82; PULSE 99; O2SAT 97; BMI 39.5
== END 2024-03-24 17:20 | disposition home or self-care (01) ==
PROVIDERS: PCP Internal Medicine; Visit Provider Internal Medicine
DX: Z00.00 Encounter for general adult medical examination without abnormal findings (principal); N64.4 Mastodynia; E66.9 Obesity, unspecified; Z68.39 Body mass index [BMI] 39.0-39.9, adult; L70.9 Acne, unspecified; J45.909 Unspecified asthma, uncomplicated; E05.00 Thyrotoxicosis with diffuse goiter without thyrotoxic crisis or storm; J30.9 Allergic rhinitis, unspecified; F41.9 Anxiety disorder, unspecified

== ENCOUNTER → 2024-03-24 16:07 | Outpatient (BNVA) | payer OTHER, SELFPAY | PROVIDERS: PCP Internal Medicine; Visit Provider Internal Medicine | DX: Z00.01 Encounter for general adult medical examination with abnormal findings (principal); N64.4 Mastodynia; L70.9 Acne, unspecified; J45.909 Unspecified asthma, uncomplicated; E05.00 Thyrotoxicosis with diffuse goiter without thyrotoxic crisis or storm; F41.9 Anxiety disorder, unspecified; E66.9 Obesity, unspecified; Z68.39 Body mass index [BMI] 39.0-39.9, adult; Z79.899 Other long term (current) drug therapy | CPT/HCPCS: 96127 ==

== ENCOUNTER 2024-04-21 11:17 | Outpatient (REF) | payer OTHER, SELFPAY | END 2024-04-21 11:18 | disposition home or self-care (01) | LOC: HO.LAB 11:17 | PROVIDERS: PCP Internal Medicine; Visit Provider Advanced Practice Midwife | DX: Z13.89 Encounter for screening for other disorder (principal) ==

== ENCOUNTER 2024-04-21 11:17 | Outpatient (AMB) | payer OTHER, SELFPAY ==
--- NOTE | 2024-04-21 11:18 | A.OFFVIS_ITS ---
Vital Signs 04/21/24 11:21 Height 5 ft 3 in Weight 222 lb BMI 39.3 BP 118/78 Intake Visit Reasons: CHUTE TENDER annual exam Medical Laboratory Specialist Required: No Medical Laboratory Specialist Services: Medical Laboratory Specialist Present Information Interpreted: clinical only Rural Mail Carrier: Rural Mail Carrier Present Allergies cat dander [CAT] Allergy (Unknown, Verified 04/21/24 11:22) ITCHY EYES SEASONAL ALLERGIES Allergy (Intermediate, Uncoded 04/21/24 11:22) ITCHY EYES Medication List - Last Reconciled 04/21/24 by Nely John CNM albuterol sulfate 2.5 mg (3 mL) inhalation QID PRN 30 days albuterol sulfate 90 mcg/actuation 2 puffs inhalation Q6H PRN betamethasone valerate 0.1% 1 appl topical BID PRN cholecalciferol (vitamin D3) 50 mcg PO DAILY 90 days doxycycline monohydrate 100 mg PO BID 10 days fluticasone propionate 50 mcg/actuation 1 spray intranasal DAILY hydroxyzine HCl 25 mg PO BEDTIME PRN 90 days loratadine 10 mg PO DAILY PRN methimazole 2.5 mg PO DAILY miconazole nitrate 2% 1 spray topical BID PRN 15 days montelukast 10 mg PO QPM 90 days [NEBULIZER and all related supplies As directed] nebulizers As directed Symbicort 160-4.5 mcg/actuation (budesonide-formoterol) 2 puffs inhalation BID 30 days NS triamcinolone acetonide 0.025% 1 appl topical BID Is last menstrual period known: Yes Last menstrual period: 04/11/24 HPI HPI CHUTE TENDER annual exam: Details: 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 She is due for a Pap smear she is occasionally sexually active but not that much lately with her . 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 She gets regular periods and they are fine. She does not need any method of control. She does wonder about excessive perspiration and finds that she gets very sweaty in her private areas especially and is worried about odor. Though she has no actual description of odor and denies fishy odor per se. She does have thyroid issues and is on medication for that and knows she is l ittle bit overweight. She has seasonal allergies-but it seems like there all the time. [facility] Medical History (Updated 04/21/24 @ 13:05 by Nely John CNM) Vitamin D deficiency Tinea pedis Obesity (BMI 30-39.9) Anxiety Allergic rhinitis Asthma Graves' disease Seasonal allergies Hyperthyroidism Surgical History No pertinent past surgical history Family History Father Healthy adult Mother Healthy adult Maternal Grandmother Breast cancer Paternal Grandmother Breast cancer Maternal Aunt Breast cancer Social History Housing: Apartment Alcohol intake: never Patient Tobacco Use Status: Never used Tobacco e-Cigarette/Vaping Use: Never Used Second Hand Smoke Exposure: No service: No Current occupational status: employed Sexual orientation: Lesbian/Lipscomb/Homosexual Gender identity: Female Cognitive needs: No Hearing needs: No Vision needs: No Female Reproductive History Menstrual Age of Menarche: 13 Duration of menses: 3-5 days Date of last menstrual period: 04/11/24 control method: none Total pregnancies: 0 Date of last pap smear: 03/28/20 (negative) Physical Exam Vital Signs: Last Vital Signs BP 118/78 04/21/24 11:21 BMI result Body Mass Index 39.3 Const General: healthy appearing, comfortable, no acute distress, well developed and alert Nutritional Appearance: average body habitus Orientation/consciousness: patient oriented x3 Limitations: no limitations HEENT Head: Yes normocephalic Neck Neck: Yes normal visual inspection Chest Chest palpation & inspection: normal inspection of the chest Breast/axilla inspection: normal inspection of the breasts and normal inspection of the axillae Breast/axilla palpation: normal palpation of the breasts and normal palpation of the axillae Resp Effort & Inspection: normal respiratory effort GI Inspection: Yes normal to inspection, No Abdominal wall edema and No distended Palpation (GI): Soft to palpation and nontender Other: Normal external exam patient does have a skin tag on her left thigh that bothers her but is completely normal in appearance. Vagina is pink and moist there is a clear discharge that is scant and consistent with follicular phase and normal appearing no odor perceived cervix nulliparous pink smooth mobile uterus midposition mobile nontender adnexa nontender reviewed doing Kegel's and Kegel's were taught in particular importance of kyle muscles and pulling upwards rather than pushing out. General: Yes bladder normal to palpation External Female Exam: normal external appearance and normal appearance of the urethra Speculum Exam - Vagina: normal appearance of the vagina, normal palpation and normal vaginal discharge Speculum Exam - Cervix: normal appearance of the cervix, normal palpation and nontender Bimanual exam- vagina & uterus: normal bimanual exam, normal palpation, uterine size normal, bladder normal to palpation, consistency normal, normal palpation, uterine mobility normal, uterine shape normal, No Cervical tenderness present, non-tender and no cervical motion tenderness Bimanual Exam- Adnexa, other: normal adnexae, no masses, normal and No adnexal tenderness Neuro General: patient oriented x3 Assessment & Plan Assessment & Plan (1) Graves' disease: Comment: Thyroid US done in November 2019 showed (+) diffuse goiter with a non-specific left thyroid nodule and recommend continuing surveillance with regular ultrasound; Had FNA Bx in 03/2021 - results not available; patient states she was last seen by Dr. Cardoza of 2023 and everything was stable--mo'b Code(s): E05.00 - Thyrotoxicosis with diffuse goiter without thyrotoxic crisis or storm Category: Medical (2) Well woman exam with routine gynecological exam: Code(s): Z01.419 - Encounter for gynecological examination (general) (routine) without abnormal findings Category: Medical (3) Encounter for screening examination for sexually transmitted disease: Code(s): Z11.3 - Encounter for screening for infections with a predominantly sexual mode of transmission Category: Medical (4) Obesity (BMI 30-39.9): Code(s): E66.9 - Obesity, unspecified Category: Medical Plan -----Discussed in this visit the following: healthy balanced diet, regular and consistent exercise, getting recommended health screens, doing the best she can for her particular health concerns, kegel exercises, pap smear screening and followup recommendations, mammography screening and SBE, normal changes in cycles in her life stage--- . Discussed her lack of need for control she is not having any issues with her periods at this time. Discussed that today we did testing for gonorrhea chlamydia trichomoniasis as well as bacterial vaginosis and yeast the latter 2 are normal kh[place]o but bacterial vaginosis can sometimes contribute to a fishy odor. That is not what she described however if it shows up she will be offered a treatment,. but I cautioned against over treatment .Since her complaint is of perspiring any time she gets sweaty and just excessive perspiration and concern about vaginal odor at the time I recommend adherence to simply measures of cotton underwear showering at least once a day and again if she works out her plays basketball, quickly changing out of athletic years such as made of nylon Spandex Lycra micro fiber polyester etc. and I do not recommend the highly advertised vaginal deodorants. Also discussed the role of being overweight plays with perspiration in general and the losing weight may be of benefit in this arena as well. Timeframe/Date Comment rtc 1 yr Coding Level of Care Code Est Pt Prev Care 18-39y(89930) Diagnoses Graves' disease E05.00 Well woman exam with routine gynecological exam Z01.419 Encounter for screening examination for sexually transmitted disease Z11.3 Obesity (BMI 30-39.9) E66.9
[2024-04-21 11:21] VITALS: BP 118/78; BMI 39.3
== END 2024-04-21 12:59 | disposition home or self-care (01) ==
LOC: HO.HWSM 11:17
PROVIDERS: PCP Internal Medicine; Visit Provider Advanced Practice Midwife
DX: Z01.419 Encounter for gynecological examination (general) (routine) without abnormal findings (principal); E05.00 Thyrotoxicosis with diffuse goiter without thyrotoxic crisis or storm; Z11.3 Encounter for screening for infections with a predominantly sexual mode of transmission; E66.9 Obesity, unspecified
CPT/HCPCS: 99395; 99459

== ENCOUNTER 2024-04-21 13:11 | Outpatient (REF) | payer OTHER, SELFPAY | END 2024-04-21 13:12 | disposition home or self-care (01) | LOC: HO.LNP 13:11 | PROVIDERS: Visit Provider Advanced Practice Midwife | DX: Z01.419 Encounter for gynecological examination (general) (routine) without abnormal findings (principal) | CPT/HCPCS: 88175 ==

== ENCOUNTER → 2024-05-05 11:00 | Outpatient (BNV) | payer OTHER, SELFPAY | PROVIDERS: PCP Internal Medicine; Visit Provider Internal Medicine | DX: N64.4 Mastodynia (principal) | CPT/HCPCS: 76642 ==

== ENCOUNTER 2024-05-05 11:08 | Outpatient (REF) | payer OTHER, SELFPAY ==
[2024-04-22 03:23] LABS: CT PCR NOT DETECTED (Not Detect.); NG PCR NOT DETECTED (Not Detect.)
[2024-04-22 13:56] LABS: Bacterial Vaginosis PCR POSITIVE (Negative); Candida Group PCR NOT DETECTED (Not Detect); Candida glab krusei PCR NOT DETECTED (Not Detect); Trichomonas vaginalis PCR NOT DETECTED (Not Detect)
--- NOTE | ~2024-05-05 | US_ITS ---
EXAMINATION: US DIAGNOSTIC ULTRASOUND BREAST, RIGHT CLINICAL INFORMATION: 28-year-old female with right breast pain lateral and axilla.. COMPARISON: Comparison is made with relevant prior imaging. TECHNIQUE: Ultrasound of the breast is performed with real-time brantley scale imaging and color Doppler. FINDINGS: Targeted color Doppler ultrasound scanning in the area the patient's pain in the lateral breast from 6-12 o'clock and axilla demonstrates normal fibroglandular breast tissue. There is no sonographic abnormality. Results are discussed with the patient at time of visit. US/US breast RT limited mamm only IMPRESSION: No sonographic abnormality to account for the patient's right breast and axillary pain. Recommend clinical evaluation and follow-up. ASSESSMENT: BI-RADS 1: Negative RECOMMENDATION: Recommend clinical evaluation and follow-up. This patient's information was entered into a reminder system with a target due date for their next mammogram. Electronically signed by: Jenniffer Peraza DO 05/05/2024 11:42 AM ASHLYN
== END 2024-05-05 11:09 | disposition home or self-care (01) ==
LOC: HO.MAMMO 11:08
PROVIDERS: Advanced Practice Midwife; PCP Internal Medicine; Visit Provider Internal Medicine
DX: R92.321 Mammographic fibroglandular density, right breast (principal); R92.8 Other abnormal and inconclusive findings on diagnostic imaging of breast; N89.8 Other specified noninflammatory disorders of vagina; Z20.2 Contact with and (suspected) exposure to infections with a predominantly sexual mode of transmission
CPT/HCPCS: 76642; 81515; 87491; 87591

== ENCOUNTER 2024-10-04 16:12 | Outpatient (AMB) | payer OTHER, SELFPAY ==
--- OUTSIDE RECORDS SUMMARY | 2024-05-07 17:01 | XMS_ITS | Encounter Summary ---
Author Organization [facility] Address [address] [facility] [address] [place] [address] Phone Care Team Providers Care Jalousies Installer Name Role Phone Tunde Deal MD Primary Care Provider [phone] [phone] Encounter Details Date Type Department Care Team (Late st Contact Info) Description 05/07/2024 4:01 PM EST Hospital Encounter [facility] [address] [place] [phone] April Meza, IRON GUARDRAIL INSTALLER [address] [place] [address] [email or web address] Social History Tobacco Use Types Packs/Day Years [...] 4:00 PM EST Office Visit [facility] [address] [place] [address] [place] [address] Arley Cardoza, DO [address] [place] [address] [email or web address] documented as of this encounter Procedures Procedure [...] clinician's provided indication for this examination in [facility]: 28 years Female presenting with Pain; Trauma Comparison: None Procedure Note Joel Burks MD - 05/07/2024 Procedure: XR FOOT 3 OR MORE VIEWS (RIGHT) Referring clinician's provided indication for this examination in [facility]: 28years Female presenting with Pain; Trauma Comparison: None IMPRESSION: FINDINGS/IMPRESSION: Subtle osseous irregularity seen along the lateral aspect of the calcaneusonly on AP view of the foot. Correlate for focal tenderness on exam andconsider dedicated radiographs of the ankle if indicated. Joint spaces are grossly maintained. Alignments are grossly maintained.The soft tissues are unremarkable. April Meza IRON GUARDRAIL INSTALLER IMG XR LOWER EXTREMITY Final Result documented in this encounter Visit Diagnoses Not on filedocumented in this encounter Care Teams Jalousies Installer Relationship Specialty Start Date End Date Tunde Deal MD [address] [place] [address] [place] [address] PCP - General Internal Medicine 03/17/20 documented as of this encounter Additional Source Comments The information contained in this document represents components of the legal health record. It is not the complete legal health record.[facility]
[2024-10-04 16:15] VITALS: BP 110/64; PULSE 92; O2SAT 98; BMI 39.6
--- NOTE | 2024-10-04 16:15 | A.OFFPC_ITS ---
Vital Signs 10/04/24 16:15 Height 5 ft 3 in Weight 223 lb 6 oz BMI 39.6 BP 110/64 Blood Pressure Location Lt brachial Position Sitting Pulse 92 Pulse Source Pulse Oximeter Pulse Oximetry (%) 98 Oxygen Delivery Method Room Air Intake Visit Reasons: 4 month f/u [employer] Required: No Accompanied by: Self / Same As Patient Allergies cat dander (CAT) Allergy (Unknown, Verified 10/11/24 04:26) ITCHY EYES SEASONAL ALLERGIES Allergy (Intermediate, Uncoded 10/11/24 04:26) ITCHY EYES Medication List - Last Reconciled 10/11/24 by Tunde Deal MD albuterol sulfate 2.5 mg (3 mL) inhalation QID PRN 30 days albuterol sulfate 90 mcg/actuation 2 puffs inhalation Q6H PRN betamethasone valerate 0.1% 1 appl topical BID PRN cholecalciferol (vitamin D3) 50 mcg PO DAILY 90 days doxycycline monohydrate 100 mg PO BID 10 days fluticasone propionate 50 mcg/actuation 1 spray intranasal DAILY hydroxyzine HCl 25 mg PO BEDTIME PRN 90 days loratadine 10 mg PO DAILY PRN methimazole 2.5 mg PO DAILY metronidazole 500 mg PO BID 7 days miconazole nitrate 2% 1 spray topical BID PRN 15 days montelukast 10 mg PO QPM 90 days [NEBULIZER and all related supplies As directed] nebulizers As directed Symbicort 160-4.5 mcg/actuation (budesonide-formoterol) 2 puffs inhalation BID 30 days NS triamcinolone acetonide 0.025% 1 appl topical BID Tobacco use date assessed: 10/04/24 Dental Screening Dental Screen Date: 10/04/24 Did you have a dental visit in the last 12 months?: Yes Did you have a dental problem in the last 6 months where you did not have access to dental care?: No Was dental information given to patient?: Patient has dentist HPI 4 month f/u HPI Details Patient comes in today for her follow-up visit States that she feels okay She denies any headaches or dizziness Denies any chest pains, no shortness of breath No nausea/vomiting, no abdominal pain No change in bowel habits noted She has had follow-up labs done since March of 2023 [facility] Medical History Vitamin D deficiency Tinea pedis Obesity (BMI 30-39.9) Anxiety Allergic rhinitis Asthma Graves' disease Seasonal allergies Hyperthyroidism Surgical History No pertinent past surgical history Family History Father Healthy adult Mother Healthy adult Maternal Grandmother Breast cancer Paternal Grandmother Breast cancer Maternal Aunt Breast cancer Social History Housing: Apartment Alcohol intake: never Patient Tobacco Use Status: Never used Tobacco e-Cigarette/Vaping Use: Never Used Second Hand Smoke Exposure: No service: No Current occupational status: employed Sexual orientation: Lesbian/Lipscomb/Homosexual Gender identity: Female Cognitive needs: No Hearing needs: No Vision needs: No Female Reproductive History Menstrual Age of Menarche: 13 Questionnaire PHQ-9 Over the last 2 weeks, how often have you been bothered by any of the following problems? 1. Little interest or pleasure in doing things: more than half the days 2. Feeling down, depressed, or hopeless: not at all 3. Trouble falling or staying asleep, or sleeping too much: not at all 4. Feeling tired or having little energy: several days 5. Poor appetite or overeating: not at all 6. Feeling bad about yourself - or that you are a failure or have let yourself or your family down: not at all 7. Trouble concentrating on things, such as reading the newspaper or watching television: not at all 8. Moving or speaking so slowly that other people could have noticed. Or the opposite - being so fidgety or restless that you have been moving around a lot more than usual: not at all 9. Thoughts that you would be better off or of hurting yourself in some way: not at all Total score: 3 Depression Screening Interpretation: Negative Depression Screening Done: Yes 81087 - PHQ-9 Billing: Yes Source: Developed by Drs. Max Mcdonald, Charito Ramirez, Allan Davis and colleagues, with an educational bo from [employer]. Thrive Questionnaire Date Thrive assessed: 10/04/24 I am a: Patient What is your living situation today?: I have a steady place to live Within the past 12 months, did the food you bought not last and you didn't have the money to get more?: Never true Within the past 12 months, did you worry whether your food would run out before you got money to buy more?: Never true Do you have trouble paying for medicines?: No Do you have trouble getting transportation to medical appointments?: No Do you have trouble paying your heating and electricity bill?: No Do you have trouble taking care of your child, family member or friend?: No Do you have trouble with day-to-day activities such as bathing, preparing meals, shopping, managing finances, etc.?: No Are you currently unemployed and looking for a job?: No Are you interested in more education?: Yes Please select the resources that you would like help with: None Currently or been in a relationship where the following occur: No concerns reported THRIVE Score: 0 AUDIT C Alcohol Use Questionnaire (AUDIT-C) 1. How often do you have a drink containing alcohol?: Monthly or less 2. How many drinks containing alcohol do you have on a typical day when you are drinking?: 1 or 2 3. How often do you have six or more drinks on one occasion?: Never Total Score: 1 Score Reviewed/Action Taken: Yes CRISTÓBAL-7 AMB Questionnaire CRISTÓBAL-7 Date CRISTÓBAL - 7 assessed: 10/04/24 Feeling nervous, anxious, or on edge: 0 = Not at all Not being able to stop or control worryin = Not at all Worrying too much about different things: 0 = Not at all Trouble relaxin = Not at all Being so restless that it is hard to sit still: 0 = Not at all Becoming easily annoyed or irritable: 0 = Not at all Feeling afraid as if something awful might happen: 0 = Not at all Total CRISTÓBAL-7 score (0-4 normal; 5-9 mild; 10-14 moderate; 15-21 severe): 0 Source: Developed by Drs. Max Mcdonald, Charito Ramirez, Allan Davis and colleagues, with an educational bo from [employer]. Review of Systems Const Denies chills, Denies fatigue, Denies fever(s) and Denies headache(s) ENT Denies dysphagia, Denies dizziness, Denies otalgia, Denies headache(s), Denies neck pain, Denies odynophagia and Denies sore throat Card Denies chest pain, Denies rapid heart rate, Denies irregular heart rhythm, Denies palpitations and Denies dyspnea Resp Denies chest congestion, Denies cough, Denies dyspnea and Denies wheezing GI Denies abdominal pain, Denies constipation, Denies dysphagia, Denies heartburn, Denies diarrhea, Denies nausea, Denies odynophagia and Denies vomiting Denies urinary frequency, Denies dysuria and Denies urinary urgency Musc Denies back pain, Denies arthralgias and Denies neck pain Skin/Breast Denies rash Neuro Denies dizziness, Denies headache(s) and Denies paresthesias Psych Denies anxiety and Denies depression Endo Denies fatigue and Denies palpitations Gregory/Lymph Denies easy bruising Aller/Immun Denies wheezing Physical exam (Primary Care) Vital Signs: Last Vital Signs Pulse 92 10/04/24 16:15 BP 110/64 10/04/24 16:15 Pulse Ox 98 10/04/24 16:15 Oxygen Delivery Method Room Air 10/04/24 16:15 BMI result Body Mass Index 39.6 Tobacco/Smoking Status: Tobacco use Status Tobacco use date assessed 10/04/24 10/04/24 16:22 Patient Tobacco Use Status Never used Tobacco 10/04/24 16:22 e-Cigarette/Vaping Use Never Used 10/04/24 16:22 PHQ-9: PHQ-9 Score PHQ-9: Total score 3 10/04/24 16:57 Depression Screening Interpretation: Negative Thrive Assessment: Date of Thrive Assessment Date Thrive assessed 10/04/24 10/04/24 16:22 Currently or been in a relationship where the following occur: No concerns reported Const General: no acute distress and alert HENMT Ears: TM's normal bilaterally and EAC's normal Throat: Yes posterior oropharynx normal and Yes tonsils normal (no TP congestion) Neck Neck: Yes supple and No lymphadenopathy Thyroid: Thyroid normal Resp Auscultation: clear to auscultation bilaterally, no rales and no wheezes Cardio Rate: regular rate Rhythm: regular rhythm Heart sounds: no murmurs GI Palpation (GI): Soft to palpation and nontender Auscultation: normal bowel sounds General: Yes no CVA tenderness Back/Spine/Pelvis Back: no CVA tenderness Thoracic/Lumbar Spine: thoracic and lumbar spine normal to inspection Skin Rashes: no rashes Extrem General: Yes no clubbing, cyanosis or edema Coding Level of Care Code Est Pt Level 4 (70782) Diagnoses Persistent asthma without complication, unspecified asthma severity J45.909 Asthma complication type: uncomplicated Asthma persistence: persistent Asthma severity: unspecified severity Graves' disease E05.00 Allergic rhinitis, unspecified seasonality, unspecified trigger J30.9 Allergic rhinitis seasonality: unspecified Allergic rhinitis trigger: unspecified Vitamin D deficiency E55.9 Acne, unspecified acne type L70.9 Acne type: unspecified acne Anxiety F41.9 Obesity (BMI 30-39.9) E66.9 Additional Codes PHQ-9 - 81494 - PHQ-9 Billing: Yes ([id number]) Assessment & Plan Assessment & Plan (1) Asthma: Code(s): J45.909 - Unspecified asthma, uncomplicated Category: Medical Qualifiers: Asthma complication type: uncomplicated Asthma persistence: persistent Asthma severity: unspecified severity Qualified Code(s): J45.909 - Unspecified asthma, uncomplicated Plan: Patient's asthma appears controlled on her current inhaler regimen Continue Symbicort 160-4.5 mcg 2 inhalations BID and Albuterol HFA 1 to 2 i nhalations Q 6 hours PRN Follow up with pulmonary at [facility] as scheduled (2) Graves' disease: Comment: Thyroid US done in November 2019 showed (+) diffuse goiter with a non-specific left thyroid nodule and recommend continuing surveillance with regular ultrasound; Had FNA Bx in 03/2021 - results not available; patient states she was last seen by Dr. Cardoza 2023 and everything was stable--mo'b Code(s): E05.00 - Thyrotoxicosis with diffuse goiter without thyrotoxic crisis or storm Category: Medical Plan: Patient is clinically stable on current regimen She follows up with Dr. Cardoza at [facility] for this and now sees him once a year for routine follow up and monitoring Continue Methimazole 2.5 mg QD Will recheck her TFTs SHANTEL for follow up (3) Allergic rhinitis: Code(s): J30.9 - Allergic rhinitis, unspecified Category: Medical Qualifiers: Allergic rhinitis seasonality: unspecified Allergic rhinitis trigger: unspecified Qualified Code(s): J30.9 - Allergic rhinitis, unspecified Plan: Continue Loratadine 10 mg QD PRN, Fluticasone 50 mcg nasal spray QD PRN and Montelukast 10 mg QD (4) Vitamin D deficiency: Code(s): E55.9 - Vitamin D deficiency, unspecified Category: Medical Plan: Continue Vitamin D3 2000 units QD (5) Acne: Code(s): L70.9 - Acne, unspecified Category: Medical Qualifiers: Acne type: unspecified acne Qualified Code(s): L70.9 - Acne, unspecified Plan: She reports breaking out in multiple acne lesions on and off over her back for a few months We have provided her with Rx for oral Doxycycline 100 mg BID x 10 days in the past and have advised her to start taking this ONLY when she breaks out in acne lesions (6) Anxiety: Code(s): F41.9 - Anxiety disorder, unspecified Category: Medical Plan: Continue Hydroxyzine 25 mg Q HS PRN (7) Obesity (BMI 30-39.9): Code(s): E66.9 - Obesity, unspecified Category: Medical Plan: Reinforced diet/exercise as tolerated/lose weight Plan To return in March 2025 for her annual physical examination Orders: Orders Complete Blood Count Auto Diff 10/04/24 D64.9 - Anemia, unspecified, E05.00 - Thyrotoxicosis with diffuse goiter without thyrotoxic crisis or storm, J30.9 - Allergic rhinitis, unspecified Cholesterol 10/04/24 E05.00 - Thyrotoxicosis with diffuse goiter without thyrotoxic crisis or storm, J30.9 - Allergic rhinitis, unspecified, Z00.00 - Encounter for general adult medical examination without abnormal findings Free T4 (Free Thyroxine) 10/04/24 E03.9 - Hypothyroidism, unspecified, E05.00 - Thyrotoxicosis with diffuse goiter without thyrotoxic crisis or storm, J30.9 - Allergic rhinitis, unspecified Thyroid Stimulating Hormone 10/04/24 E03.9 - Hypothyroidism, unspecified, E05.00 - Thyrotoxicosis with diffuse goiter without thyrotoxic crisis or storm, J30.9 - Allergic rhinitis, unspecified Comprehensive Met. Panel 10/04/24 E05.00 - Thyrotoxicosis with diffuse goiter without thyrotoxic crisis or storm, J30.9 - Allergic rhinitis, unspecified Vitamin D 25-OH Total 10/04/24 E05.00 - Thyrotoxicosis with diffuse goiter without thyrotoxic crisis or storm, E55.9 - Vitamin D deficiency, unspecified, J30.9 - Allergic rhinitis, unspecified UA CC w/rflx Micro + Cult 10/04/24 E05.00 - Thyrotoxicosis with diffuse goiter without thyrotoxic crisis or storm, J30.9 - Allergic rhinitis, unspecified, R30.0 - Dysuria
== END 2024-10-04 17:01 | disposition home or self-care (01) ==
LOC: HO.HMCH 16:13
PROVIDERS: PCP Internal Medicine; Visit Provider Internal Medicine
DX: J45.909 Unspecified asthma, uncomplicated (principal); E66.9 Obesity, unspecified; Z68.39 Body mass index [BMI] 39.0-39.9, adult; E05.00 Thyrotoxicosis with diffuse goiter without thyrotoxic crisis or storm; J30.9 Allergic rhinitis, unspecified; E55.9 Vitamin D deficiency, unspecified; L70.9 Acne, unspecified; F41.9 Anxiety disorder, unspecified

== ENCOUNTER → 2024-10-04 16:12 | Outpatient (BNVA) | payer OTHER, SELFPAY | PROVIDERS: PCP Internal Medicine; Visit Provider Internal Medicine | DX: J45.909 Unspecified asthma, uncomplicated (principal); E05.00 Thyrotoxicosis with diffuse goiter without thyrotoxic crisis or storm; E55.9 Vitamin D deficiency, unspecified; L70.9 Acne, unspecified; F41.9 Anxiety disorder, unspecified; E66.9 Obesity, unspecified; Z68.39 Body mass index [BMI] 39.0-39.9, adult; Z79.899 Other long term (current) drug therapy; Z13.31 Encounter for screening for depression; Z13.39 Encounter for screening examination for other mental health and behavioral disorders | CPT/HCPCS: 96127 ==

== ENCOUNTER 2024-11-17 15:56 | Outpatient (REF) | payer OTHER, SELFPAY ==
--- OUTSIDE RECORDS SUMMARY | 2024-05-07 17:01 | XMS_ITS | Encounter Summary ---
Author Organization [facility] Address [address] [facility] [address] [place] [address] Phone Care Team Providers Care Multiple Needle Stitcher Name Role Phone Tunde Deal MD Primary Care Provider [phone] [phone] Encounter Details Date Type Department Care Team (Late st Contact Info) Description 05/07/2024 4:01 PM EST Hospital Encounter [facility] [address] [place] [phone] April Meza, SWAMPER [address] [place] [address] [email or web address] Social History Tobacco Use Types Packs/Day Years [...] Care Team (Late st Contact Info) Description 01/10/2025 4:00 PM EST Office Visit [facility] [address] [place] [address] [place] [address] Arley Cardoza, DO [address] [place] [address] [email or web address] documented as of this encounter Procedures Procedure [...] clinician's provided indication for this examination in [facility]: 28 years Female presenting with Pain; Trauma Comparison: None Procedure Note Joel Burks MD - 05/07/2024 Procedure: XR FOOT 3 OR MORE VIEWS (RIGHT) Referring clinician's provided indication for this examination in [facility]: 28years Female presenting with Pain; Trauma Comparison: None IMPRESSION: FINDINGS/IMPRESSION: Subtle osseous irregularity seen along the lateral aspect of the calcaneusonly on AP view of the foot. Correlate for focal tenderness on exam andconsider dedicated radiographs of the ankle if indicated. Joint spaces are grossly maintained. Alignments are grossly maintained.The soft tissues are unremarkable. April Meza [employer] IMG XR LOWER EXTREMITY Final Result documented in this encounter Visit Diagnoses Not on filedocumented in this encounter Care Teams Multiple Needle Stitcher Relationship Specialty Start Date End Date Tunde Deal MD [address] [place] [address] [place] [address] PCP - General Internal Medicine 03/17/20 documented as of this encounter Additional Source Comments The information contained in this document represents components of the legal health record. It is not the complete legal health record.[facility]
--- OUTSIDE RECORDS SUMMARY | 2024-11-09 13:00 | XMS_ITS | Encounter Summary ---
Author Organization [facility] Address [address] [place] [id number] Phone Care Team Providers Care Tax Compliance Agent Name Role Phone Tunde Deal MD Primary Care Provider [phone] Reason for Visit * Reason Comments Sore Throat Pt presents for eval of headache, sore throat and nasal congestion x Encounter Details Date Type Department Care Team (Late st Contact Info) Description 11/09/2024 1:00 PM EDT Office Visit [facility] [address] [address] Shahla Conteh, CHELSEY [address] [place] [address] [email or web address] Sore throat (Primary Dx) Social History Tobacco Use Types Packs/Day Years [...] 01/12/2024 Are you denied basic needs s [facility] as food, clothing, or medical care? No [...] AM EDT documented as of this encounter Last Filed Vital Signs Vital Sign Reading Time Taken Comments Blood Pressure 122/77 11/09/2024 1:00 PM EDT Pulse 68 11/09/2024 1:00 PM EDT Temperature 36.2 C (97.2 F) 11/09/2024 1:00 PM EDT Respiratory Rate 18 11/09/2024 1:00 PM EDT Oxygen Saturation 99% 11/09/2024 1:00 PM EDT Inhaled Oxygen Concentration - - Weight - - Height - - Body Mass Index - - documented in this encounter Patient Instructions * Patient Instructions* Shahla Conteh, CHELSEY - 11/09/2024 1:00 PM EDT You have been diagnosed with a sinus infection. Take antibiotic as prescribed. Take a daily probiotic and/or eat yogurt daily to restore good bacteria in the gut. Rest. Your body needs energy to heal. Drink plenty of fluids and stay well hydrated. Warm salt water gargles 4x per day. Tylenol/Ibuprofen for pain relief. Nasal decongestant if needed, but only for a few days. Sudafed Use Flonase to help treat inflammation. Mucinex may help loosen secretions. Saline nasal spray is helpful to remove mucus. Drink hot water with eyad, lemon, and honey. Apply warm compresses to face. Use a humidifier in your room. If symptoms persist after treatment, follow-up with PCP. If symptoms worsen or you experience difficulty speaking, swallowing, breathing, or controlling your saliva, please report to the emergency department immediately for further assessment. documented in this encounter Progress Notes * Shahla Conteh NP - 11/09/2024 1:00 PM EDT SUBJECTIVE Patient ID: Nery Bray is a 29 y.o. female Chief Complaint: Sore Throat (Pt presents for eval of headache, sore throat and nasal congestion x) HPI: Patient reports headache, sore throat, and nasal congestion for the past 5 days. Denies fever, chills, cough, shortness of breath, nausea, vomiting, or rash. No sick contacts reported. No recent travel. Symptoms are gradually worsening, with mild fatigue but able to perform daily activities. Review of Systems Constitutional: Denies fever. HEENT: Admits sinus congestion, sore throat, headache Respiratory: Denies shortness of breath, cough. Cardiovascular: Denies chest pain, palpitations. Gastrointestinal: Denies abdominal pain, nausea, vomiting, constipation. Endocrine: Denies neck swelling. Genitourinary: Denies frequent urination, dysuria, hematuria, difficulty urinating, flank pain. Musculoskeletal: Denies back pain. Skin: Denies rash. Neurological: Denies dizziness, headache. Hematological: Negative. Psychiatric/Behavioral: Negative. Vitals: 11/09/24 1300 BP: 122/77 Pulse: 68 Resp: 18 Temp: 36.2 ??C (97.2 ??F) TempSrc: Temporal SpO2: 99% OBJECTIVE Physical Exam Vitals signs reviewed. Constitutional: Appearance: Normal appearance. HEENT: Head: Normocephalic and atraumatic. Eyes: PERRL, conjunctiva and sclera normal. Ears: External ears normal. Canals normal. TMs normal. Nose: No sinus tenderness noted. Mouth: No erythema, edema, exudates noted about the posterior oropharynx. Uvula midline. Neck: Trachea midline no adenopathy Cardiovascular: Regular rate and rhythm. No murmurs, rubs, or gallops noted. Pulses normal. Pulmonary: Lungs clear to auscultation. Musculoskeletal: Normal range of motion. No edema noted. Skin: No erythema, induration, calor, ecchymosis noted. Neurological: Awake, alert, orientated x3. Psychiatric: Mood and Affect: Mood normal. Behavior: Behavior normal. Thought Content: Thought content normal. Judgment: Judgment normal. Results for orders placed or performed in visit on 11/09/24 POCT COVID-19 RT-PCR/Influenza A & B/RSV (Cepheid) Result Value Ref Range RSV PCR Negative Negative SARS-CoV-2 (COVID-19) Negative Negative POC Influenza A PCR Negative Negative POC Influenza B PCR Negative Negative POCT Strep A PCR (Cepheid) Result Value Ref Range Strep A Negative, Valid Control Negative, Valid Control Procedure: Procedures Assessment/Plan: Diagnosis Plan 1. Sore throat POCT Strep A PCR (Cepheid) Assessment (A): Viral upper respiratory infection (URI) Plan (P): Strep, COVID, flu, RSV negative on exam Symptomatic care: hydration, rest, acetaminophen or ibuprofen for pain/fever, saline nasal sprays Monitor for worsening symptoms: high fever, persistent sore throat, difficulty swallowing, shortness of breath Follow-up if symptoms persist beyond 7-10 days or worsen Work note provided today on exam documented in this encounter Plan of Treatment Upcoming Encounters Date Type Department Care Team (Late st Contact Info) Description 01/10/2025 4:00 PM EST Office Visit [facility] [address] [place] [phone] Arley Cardoza DO [address] [place] [phone] [email or web address] documented as of this encounter Procedures Procedure Name Priority Date/Time Associated Diagnosis Comments POCT STREP A PCR CEPHEID Routine 11/09/2024 1:58 PM EDT Sore throat POCT COVID-19 RT-PCR/INFLUENZA A & B/RSV CEPHEID Routine 11/09/2024 1:09 PM EDT documented in this encounter Results * POCT Strep A PCR (Cepheid) (11/09/2024 1:58 PM EDT) Strep A Negative, Valid Control Negative, Valid Control Comment:Wrong part of label scanned, did not cross over Other 11/09/2024 1:58 PM EDT us Shahla Conteh CLASSROOM INSTRUCTOR POINT OF CARE TEST ORDERAB LES Final Result * POCT COVID-19 RT-PCR/Influenza A & B/RSV (Cepheid) (11/09/2024 1:09 PM EDT) RSV PCR Negative Negative [facility] SARS-CoV-2 (COVID-19) Negative Negative [facility] POC Influenza A PCR Negative Negative [facility] POC Influenza B PCR Negative Negative [facility] 11/09/2024 1:09 PM EDT 11/09/2024 1:49 PM EDT us Shahla Conteh CLASSROOM INSTRUCTOR POINT OF CARE TEST ORDERAB LES Final Result Performing Organization Address City/State/[facility] Co de Phone Number [facility] [address] [address], [facility] [phone] documented in this encounter Visit Diagnoses Diagnosis Sore throat- Primary Acute pharyngitis documented in this encounter Care Teams Tax Compliance Agent Relationship Specialty Start Date End Date Tunde Deal MD [address] [place] [address] [place] [id number] PCP - General Internal Medicine 03/17/20 documented as of this encounter Additional Source Comments The information contained in this document represents components of the legal health record. It is not the complete legal health record.[facility]
[2024-11-17 16:42] LABS: MANUAL DIFF FLAG NO
[2024-11-17 16:55] LABS: Hematocrit 36.7 % (37.0-47.0); Hemoglobin 11.7 g/dl (12.0-16.0); Imm Gran Abs Auto 0.02 X10*3/uL (0.00-0.03); Imm Gran Pct Auto 0.4 % (0.0-0.4); Lymphocytes Absolute Auto 1.8 X10*3/uL (1.2-4.9); Mean Corpuscular HGB Conc 31.9 g/dl (31.0-35.0); Mean Corpuscular Hemoglobin 26.0 pg (27.0-33.0); Mean Corpuscular Volume 81.6 fL (80.0-98.0); NRBC Abs Auto 0.000 X10*3/uL (0.0-0.012); NRBC Pct Auto 0.0 /100WBC (0.0-0.2); Platelet Count 367 X10*3/uL (160-400); Red Blood Count 4.50 X10*6/uL (4.20-5.50); White Blood Count 4.9 X10*3/uL (4.8-10.8)
[2024-11-17 17:32] LABS: Alanine Aminotransferase 15 U/L (0-31); Albumin Level 4.5 g/dL (3.5-5.0); Alkaline Phosphatase 105 U/L (39-117); Anion Gap 12 (12-20); Aspartate Amino Transferase 16 U/L (5-31); Blood Urea Nitrogen 8 mg/dL (9-16); Calcium 9.1 mg/dL (8.4-10.2); Carbon Dioxide 26 mmol/L (22-29); Chloride 106 mmol/L (96-108); Cholesterol 178 mg/dL (<200); Estimated Glomerular Filt Rate > 60; Potassium 3.8 mmol/L (3.3-5.1); Sodium 140 mmol/L (135-145); Total Protein 7.8 g/dL (6.5-8.0)
[2024-11-17 17:42] LABS: Appearance Urine Clear; Glucose Urine UA Negative (Negative); PH 6.5 (5.0-9.0); Specific Gravity - Urine 1.025 (1.005-1.025)
[2024-11-17 17:49] LABS: Free T4 (Free Thyroxine) 1.12 ng/dL (0.71-1.85); Thyroid Stimulating Hormone 0.82 uIU/mL (0.32-4.0)
--- OUTSIDE RECORDS SUMMARY | 2024-11-17 19:11 | XMS_ITS | Encounter Summary ---
Author Organization [facility] Address [address] [place] [phone] Phone Care Team Providers Care Touch Up Carver Name Role Phone Tunde Deal MD Primary Care Provider [phone] Encounter Details Date Type Department Care Team (Late Contact Info) Description 01/01/2021 Procedure Pass [facility], [address] [address] Social History Tobacco Use Types Packs/Day Years Used Date Smoking Tobacco: Never Smokeless Tobacco: Never Alcohol Use Standard Drinks/Week Comments Yes 3 (1 standard drink = 0.6 oz pur e alcohol) Comments Unknown Sex and Gender Information Value [...] 4:00 PM EST Office Visit [facility] [address] [place] [address] Arley Cardoza DO [address] [place] [address] documented as of this encounter Visit Diagnoses Not on filedocumented in this encounter Additional Health Concerns Infection Onset Date Last Indicated Resolved Time CoV-Risk 01/01/2022 01/01/2022 01/12/2022 6:51 AM EST Influenza B 01/17/2023 01/17/2023 01/24/2023 1:22 AM EST CoV-Risk 11/26/2023 11/26/2023 12/07/2023 1:21 AM EDT documented as of this encounter Care Teams Touch Up Carver Relationship Specialty Start Date End Date Tunde Deal MD [address] [place] [address] Dr Lackey [address] [place] [address], [place] [address] PCP - General Internal Medicine 03/17/20 documented as of this encounter Additional Source Comments The information contained in this document represents components of the legal health record. It is not the complete legal health record.[facility]
--- OUTSIDE RECORDS SUMMARY | 2024-11-17 19:11 | XMS_ITS | Clinical Summary ---
Author Organization [facility] Address [address] [address] Phone Care Team Providers Care Loss Prevention Consultant Name Role Phone Tunde Deal MD Primary Care Provider [phone] Allergies No known active allergies Medications triamcinolone acetonide 0.025 % cream Apply topically 2 (two) times a day. Active hydrOXYzine (ATARAX) 25 MG tablet Take 25 mg by mouth nightly at bedtime as needed for itching. Active fluticasone propionate (FLOVENT HFA) 110 mcg/actuation inhaler Inhale 1 puff into the lungs 2 (two) times a day. Active albuterol sulfate (PROAIR HFA INHL) Inhale into the lungs. Active fluticasone propionate (FLONASE) 50 mcg/actuation nasal spray 1 spray by Nasal route daily. Active loratadine (CLARITIN) 10 mg tablet Take 10 mg by mouth daily. Active montelukast (SINGULAIR) 10 mg tablet Take 10 mg by mouth nightly at bedtime. 1 Active cholecalciferol (VITAMIN D3) 2,000 unit capsule Take 1 capsule by mouth every morning. 4 Active methIMAzole (TAPAZOLE) 5 MG tabletIndicatio ns:Graves' disease TAKE 1/2 TABLET BY MOUTH DAILY 45 tablet 3 4 Active betamethasone valerate 0.1 % cream 5 Active methylPREDNISol one (MEDROL DOSEPACK) 4 mg tablet follow package directions 21 tablet 5 Active Active Problems Problem Noted Date Diagnosed Date Moderate persistent asthma 11/26/2023 Eczema 11/26/2023 Class 1 obesity 11/26/2023 Graves' disease 04/19/2020 Assessment & Plan (01/13/2024 2:34 PM EST): Clinically she is euthyroid. She forgot to repeat thyroid function studies. I asked her to do it after the visit. Assuming levels are fine we will see her in 1 year. If so she should continue methimazole 2.5 mg daily. She should repeat thyroid function studies prior to the follow-up visit in 1 year. Addendum: The patient did not do lab work. I sent a message through the patient portal asking her to do lab work today. I checked labs and still nothing done. I will hold off sending medications for now. Hopefully the patient will get lab work done soon. Assessment & Plan (01/09/2023 4:21 PM EST): Chemically and clinically euthyroid with methimazole 2.5 mg daily she should repeat thyroid function studies in 1 year. She has been on methimazole at the same dose for close to 3 years but has not gone into remission we will continue the current regimen. Assessment & Plan (01/07/2022 8:59 AM EST): The patient remains chemically and clinically euthyroid on methimazole 2.5 mg daily. She has been stable on this dose for 1 year and 10 months. I will continue the current dose and have her repeat thyroid function studies prior to the follow-up visit in 1 year. Assessment & Plan (03/09/2021 1:06 PM EST): Medically and clinically euthyroid continue current dose of methimazole. Since she is doing well she should repeat thyroid function studies prior to the follow-up visit. She is scheduled for repeat ultrasound in 12/26/2021 so she will return for follow-up in January 2022. Assessment & Plan (01/01/2021 9:44 AM EDT): Currently the patient is not feeling well she has symptoms of fatigue and fatigue can be either or from hyperthyroidism or hypothyroidism. But she has Graves' disease with a Jonathan's component and is on a very low dose of methimazole 2.5 mg so she could have gone into the hypothyroid range. In any case and when to continue the medication 2.5 mg. She will do lab work today by tomorrow this results should be ready. If she is hypothyroid then obviously she needs to discontinue the methimazole. However if she is hyperthyroid then we have to increase the dose of methimazole. I also requested repeat lab work for the follow-up visit on March 09, 2021. Assessment & Plan (09/18/2020 9:33 AM EDT): Chemically euthyroid on methimazole 2.5 mg. She continues to have some jitteriness but not as much as before. She informs me that she still has a lot of medication left so I am not going to send a new prescription. Assessment & Plan (06/19/2020 9:52 AM EDT): Chemically the numbers are within the reference range but clinically she has anxiety jitteriness and fatigue at times she definitely thinks is from the thyroid condition. And that exactly sure how I can help change this because thyroid functions are within the reference range. The problem is that she does not feel any differently when she was on the 5 mg as opposed to the 2.5 mg in the TSH are definitely different one was 3M IUs/mL and the other one its 1.79M IUs/mL. So you think that one is jittery they probably need more medications not last so we could potentially go up to 5 mg but the patient feels that she just rather continue with the current dose. She informs me that she still has medications left. However she does not have enough medications for 3 months so I am going to send a new prescription. I will send 5 mg tablets and she will continue taking half a tablet. Assessment & Plan (04/19/2020 10:50 AM EST): This is a patient with Graves' disease based on elevated thyrotropin receptor antibody but she also has a Jonathan's component. She has been treated with methimazole. The fact that she has a Jonathan's component means that she can go into remission usually takes up to 2 years with methimazole therapy. She has been treated since late 2018. Has been over 2 years. Her TSH was increasing and the dose of methimazole was decreased to 2.5 mg daily she continues on this dose but she is finding that she feels a little bit more anxious more hypothyroid based on all her symptoms. I will repeat thyroid function studies today she can do the lab work in our lab downstairs. Based on those results will determine whether the dose of methimazole has to be increased or discontinue. Nontoxic uninodular goiter 04/19/2020 Assessment & Plan (01/12/2024 4:16 PM EST): The left lobe nodule has not grown significantly 16 %/year. She does not require repeat biopsy. She is due for repeat ultrasound on 12/30/2026. Assessment & Plan (01/09/2023 4:22 PM EST): She has a left lobe nodule that has been biopsied once and on the last ultrasound decrease in size. She is due for repeat ultrasound on 12/27/2023. This has been requested. I did inform the patient to contact radiology by September 2023 to schedule the study with them. She should get it done before she sees me in 1 years time. Assessment & Plan (01/07/2022 9:00 AM EST): The patient has a benign left lower pole nodule that has been biopsied on 1 occasion. The nodule is now smaller in size but relatively stable and he does not require repeat biopsy. I recommend repeating ultrasound on 12/27/2023. I informed the patient that if at that time the nodule is stable in size we can repeat the ultrasound on 12/26/2026. If the nodule grows by 30% or more in 2 years time then we will have to repeat the biopsy. But if he remains stable we just do serial ultrasound monitoring for period of 11 years. If the nodule remains stable for period of 11 years then she would not require continue serial ultrasound monitoring. Assessment & Plan (03/09/2021 1:06 PM EST): Left lobe nodule grown by 51% in a year which was significant and was biopsied on 03/07/2021 found to be benign. She should repeat ultrasound again a year since last ultrasound by 12/26/2021. If the nodule remains stable no need to repeat biopsy but she can repeat ultrasound 2 years later by 2023. Assessment & Plan (01/01/2021 9:45 AM EDT): The patient has a nontoxic uninodular goiter on the left lobe that measures 1.1 x 0.7 x 1.1 cm and has grown by 51% in a year this is considered significant. She has agreed to ultrasound-guided fine-needle aspiration for 03/07/2021. Assessment & Plan (09/18/2020 9:28 AM EDT): Ultrasound has been requested and she should get this appointment 12/26/2020. Assessment & Plan (06/19/2020 9:53 AM EDT): Is due for ultrasound December 26, 2020. Assessment & Plan (04/19/2020 10:51 AM EST): He had a subcentimeter nodule that was not quite 1 cm in size yet in the left lower pole. I will request an ultrasound to be done at [facility] on 12/26/2020. this for monitoring of nodular growth. 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 Encounters Date Type Department Care Team Description 11/15/2024 1:00 PM EDT Office Visit [facility] at [address] [address] Kacey Jackson CNP Dysfunction of right eustachian tube (Primary Dx) 11/09/2024 1:00 PM EDT Office Visit [facility] at [address] [address] Shahla Conteh, CHELSEY Sore throat (Primary Dx) from Last 3 Months Family History Medical History Relation Comments No Known Problems Father Thyroid disease Maternal Aunt No Known Problems Mother Thyroid disease Paternal Grandmother Relation Status Comments Father Alive Maternal Aunt Alive Mother Alive Paternal Grandmother Alive Social History Tobacco Use Types Packs/Day Years Used Date Smoking Tobacco: Never Smokeless Tobacco: Never Tobacco Cessation:Counseling Given: Not Answered Alcohol Use Standard Drinks/Week Comments Not Currently [...] or Lipscomb 06/16/2020 7: 34 AM EDT Last Filed Vital Signs Vital Sign Reading Time Taken Comments Blood Pressure 135/84 11/15/2024 1:18 PM EDT Pulse 68 11/15/2024 1:18 PM EDT Temperature 36.7 C (98 F) 11/15/2024 1:18 PM EDT Respiratory Rate 18 11/15/2024 1:18 PM EDT Oxygen Saturation 99% 11/15/2024 1:18 PM EDT Inhaled Oxygen Concentration - - Weight 93.9 kg (207 lb) 01/12/2024 6:48 PM EST Height 157.5 cm (5' 2 ) 01/12/2024 7:24 PM EST Body Mass Index 37.86 01/12/2024 6:48 PM EST Plan of Treatment Upcoming Encounters Date Type Department Care Team (Shelli st Contact Info) Description 01/10/2025 4:00 PM EST Office Visit [facility] [address] [place] [id number] Arley Cardoza DO [address] [place] [id number] [email or web address] Health Maintenance Due Date Last Done Comments Adult Td,Tdap Booster 1997 DEPRESSION SCREENING 2009 HEPATITIS C SCREENING 06/12/2015 HIV ONE-TIME SCREENING (18-65 YEARS) 06/12/2015 PNEUMOCOCCAL VACCINES (0-49 years) (1 of 2 - PCV) 2016 PAP SMEAR 2018 INFLUENZA VACCINE (#1) 2024 , 12/09/2014, 12/31/2013, Additional history exists COVID-19 VACCINE ( season) 2024 HIB VACCINES Completed 12/13/1998, 03/1997, 1997, Additional history exists MENINGOCOCCAL VACCINES (ACWY) Aged Out 10/12/2013, 09/26/2009 No longer eligibl e based on patient's age to complete this topic SMOKING STATUS SCREENING (Once After 26 Yrs) Completed 11/15/2024 HEPATITIS A VACCINES Aged Out No long er eligible based on patient's age to complete this topic MENINGOCOCCAL VACCINES (B) Aged Out N o longer eligible based on patient's age to complete this topic Medical Devices Not on file Procedures Procedure Name Priority Date/Time Associated Diagnosis Comments POCT STREP A PCR CEPHEID Routine 11/09/2024 1:58 PM EDT Sore throat POCT COVID-19 RT-PCR/INFLUENZA A & B/RSV CEPHEID Routine 11/09/2024 1:09 PM EDT from Last 3 Months Results * POCT Strep A PCR (Cepheid) (11/09/2024 1:58 PM EDT) Strep A Negative, Valid Control Negative, Valid Control Comment:Wrong part of label scanned, did not cross over Other 11/09/2024 1:58 PM EDT Shahla Conteh NP POINT OF CARE TEST ORDERAB LES Final Result * POCT COVID-19 RT-PCR/Influenza A & B/RSV (Cepheid) (11/09/2024 1:09 PM EDT) Pathologist [facility] RSV PCR Negative Negative [facility] SARS-CoV-2 (COVID-19) Negative Negative [facility] Influenza A PCR Negative Negative [facility] Influenza B PCR Negative Negative [facility] 11/09/2024 1:09 PM EDT 11/09/2024 1:49 PM EDT Shahla Cotneh NP POINT OF CARE TEST ORDERAB LES Final Result Performing Organization Address City/State/[facility] Co de Phone Number [facility] [address] [address], [facility] [phone] from Last 3 Months Insurance [facility] HMO O O O Care Teams Loss Prevention Consultant Relationship Specialty Start Date End Date Tunde Deal MD [address] [place] [address] [address] [facility] [place] [address] PCP - General Internal Medicine 03/17/20 Additional Source Comments The information contained in this document represents components of the legal health record. It is not the complete legal health record.[facility]
== END 2024-11-17 15:57 | disposition home or self-care (01) ==
LOC: HO.LAB 15:56
PROVIDERS: PCP Internal Medicine; Visit Provider Internal Medicine
DX: Z00.00 Encounter for general adult medical examination without abnormal findings (principal); R30.0 Dysuria; E05.00 Thyrotoxicosis with diffuse goiter without thyrotoxic crisis or storm; E03.9 Hypothyroidism, unspecified; J30.9 Allergic rhinitis, unspecified; D64.9 Anemia, unspecified; E55.9 Vitamin D deficiency, unspecified
CPT/HCPCS: 36415; 80053; 81003; 82306; 82465; 84439; 84443; 85025

== ENCOUNTER 2024-12-20 11:20 | Outpatient (AMB) | payer OTHER, SELFPAY ==
--- OUTSIDE RECORDS SUMMARY | 2024-05-07 17:01 | XMS_ITS | Encounter Summary ---
Author Organization [facility] Address [address] [facility] [address] [place] [address] Phone Care Team Providers Care Flux Mixer Name Role Phone Tunde Deal MD Primary Care Provider [phone] [phone] Encounter Details Date Type Department Care Team (Late st Contact Info) Description 05/07/2024 4:01 PM EST Hospital Encounter [facility] [address] [place] [phone] April Meza, AIRCRAFT ORDNANCE SYSTEMS MECHANIC [address] [place] [address] [email or web address] Social History Tobacco Use Types Packs/Day Years [...] 4:00 PM EST Office Visit [facility] [address] [place] [address] [place] [address] Arley Cardoza, DO [address] [place] [address] [email or web address] documented as of this encounter Procedures [...] clinician's provided indication for this examination in [facility]: 28 years Female presenting with Pain; Trauma Comparison: None Procedure Note Joel Burks MD - 05/07/2024 Procedure: XR FOOT 3 OR MORE VIEWS (RIGHT) Referring clinician's provided indication for this examination in [facility]: 28years Female presenting with Pain; Trauma Comparison: None IMPRESSION: FINDINGS/IMPRESSION: Subtle osseous irregularity seen along the lateral aspect of the calcaneusonly on AP view of the foot. Correlate for focal tenderness on exam andconsider dedicated radiographs of the ankle if indicated. Joint spaces are grossly maintained. Alignments are grossly maintained.The soft tissues are unremarkable. April Meza AIRCRAFT ORDNANCE SYSTEMS MECHANIC IMG XR LOWER EXTREMITY Final Result documented in this encounter Visit Diagnoses Not on filedocumented in this encounter Care Teams Flux Mixer Relationship Specialty Start Date End Date Tunde Deal MD [address] [place] [address] [place] [address] PCP - General Internal Medicine 03/17/20 documented as of this encounter Additional Source Comments The information contained in this document represents components of the legal health record. It is not the complete legal health record.[facility]
[2024-12-20 11:22] VITALS: BP 90/60; PULSE 92; RESP 18; TEMP 36.2; O2SAT 97; BMI 40.8
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
--- OUTSIDE RECORDS SUMMARY | 2024-12-20 14:07 | XMS_ITS | Clinical Summary ---
Author Organization [facility] Address [address] [address] Phone Care Team Providers Care Sports Management Intern Name Role Phone Tunde Deal MD Primary Care Provider [phone] [phone] Allergies No known active allergies Medications triamcinolone [...] request an ultrasound to be done at [facility] on 12/26/2020. this for monitoring of nodular growth. 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 Encounters Date Type Department Care Team Description 11/15/2024 1:00 PM EDT Office Visit [facility] at [address] [address] Kacey Jackson CNP Dysfunction of right eustachian tube (Primary Dx) 11/09/2024 1:00 PM EDT Office Visit [facility] at [address] [address] Shahla Conteh, CHELSEY Sore throat (Primary Dx) [...] 4:00 PM EST Office Visit [facility] [address] [place] [address] Arley Cardoza DO [address] [place] [address] [email or web address] Health Maintenance Due Date Last Done Comments Adult Td,Tdap Booster 1997 DEPRESSION SCREENING 2009 HEPATITIS C SCREENING 06/12/2015 HIV ONE-TIME SCREENING (18-65 YEARS) 06/12/2015 PNEUMOCOCCAL VACCINES (0-49 years) (1 of 2 - PCV) 2016 PAP SMEAR 2018 INFLUENZA VACCINE (#1) 2024 4, 12/09/2014, 12/31/2013, Additional history exists COVID-19 VACCINE (2024- season) 2024 HIB VACCINES Completed 12/13/1998, 03/1997, [...] B/RSV (Cepheid) (11/09/2024 1:09 PM EDT) Pathologist [facility] RSV PCR Negative Negative [facility] SARS-CoV-2 (COVID-19) Negative Negative [facility] Influenza A PCR Negative Negative [facility] Influenza B PCR Negative Negative [facility] 11/09/2024 1:09 PM EDT 11/09/2024 1:49 PM EDT Shahla Conteh NP POINT OF CARE TEST ORDERAB LES Final Result Performing Organization Address City/State/[facility] Co de Phone Number [facility] [address] [address], [facility] [phone] from Last 3 Months Insurance [facility] HMO O O O Care Teams Sports Management Intern Relationship Specialty Start Date End Date Tunde Deal MD [address] [place] [address] [place] [address] PCP - General Internal Medicine 03/17/20 Additional Source Comments The information contained in this document represents components of the legal health record. It is not the complete legal health record.[facility]
--- OUTSIDE RECORDS SUMMARY | 2024-12-20 14:07 | XMS_ITS | Encounter Summary ---
Author Organization [facility] Address [address] [place] [address] Phone Care Team Providers Care Intensivist Name Role Phone Tunde Deal MD Primary Care Provider [phone] [phone] Encounter Details Date Type Department Care Team (Late Contact Info) Description 01/01/2021 Procedure Pass [facility], [address] [address] Social History Tobacco Use Types Packs/Day Years [...] Encounters Date Type Department Care Team (Late Contact Info) Description 01/10/2025 4:00 PM EST Office Visit [facility] [address] [place] [address] Arley Cardoza DO [address] [place] [address] documented as of this encounter Visit Diagnoses Not on filedocumented in this encounter Additional Health Concerns Infection Onset Date Last Indicated Resolved Time CoV-Risk 01/01/2022 01/01/2022 01/12/2022 6:51 AM EST Influenza B 01/17/2023 01/17/2023 01/24/2023 1:22 AM EST CoV-Risk 11/26/2023 11/26/2023 12/07/2023 1:21 AM EDT documented as of this encounter Care Teams Intensivist Relationship Specialty Start Date End Date Tunde Deal MD [address] [place] [address] Dr Lackey [address] [place] [address], [place] [address] PCP - General Internal Medicine 03/17/20 documented as of this encounter Additional Source Comments The information contained in this document represents components of the legal health record. It is not the complete legal health record.[facility]
== END 2024-12-20 12:24 | disposition home or self-care (01) ==
LOC: HO.HMCH 11:20
PROVIDERS: PCP Internal Medicine
DX: S16.1XXS Strain of muscle, fascia and tendon at neck level, sequela (principal); S39.012S Strain of muscle, fascia and tendon of lower back, sequela; V89.2XXS Person injured in unspecified motor-vehicle accident, traffic, sequela

== ENCOUNTER 2025-02-28 13:25 | Outpatient (AMB) | payer OTHER, SELFPAY ==
--- OUTSIDE RECORDS SUMMARY | 2024-05-07 16:01 | XMS_ITS | Encounter Summary ---
Author Organization [facility] Address [address] [facility] [address] [place] [address] Phone Care Team Providers Care Senior Oracle Pl Sql Developer Name Role Phone Tunde Deal MD Primary Care Provider [phone] [phone] Encounter Details Date Type Department Care Team (Late st Contact Info) Description 05/07/2024 4:01 PM [facility] Hospital Encounter [facility] [address] [place] [phone] April Meza, WINDMILL TECHNICIAN [address] [place] [address] [email or web address] Social History Tobacco Use Types Packs/Day Years Used Date Smoking Tobacco: Never Smokeless Tobacco: Never Alcohol Use Standard Drinks/Week Comments Not Currently 3 (1 standard drink = 0.6 oz pur e alcohol) Education Answer Date Recorded Are you interested in more education? Not on panda e 06/28/2022 Are you concerned about learning? Not on file 06/28/2022 No 06/28/2022 No 06/28/2022 Digital Access Answer Date Recorded No 07/27/2022 No 07/27/2022 Reliable internet access at home? Not on file 07/27/2022 Device with a working camera? Not on file Intimate Partner Violence Answer Date R ecorded Are you denied basic needs s uch as food, clothing, or medical care? No 01/12/2024 In the past 12 months have y ou been in a relationship with a person who hurts, threatens, or tries to control you? No 01/12/2024 Are you denied basic needs s uch as food, clothing, or medical care? No 01/12/2024 In the past 12 months have y ou been in a relationship with a person who hurts, threatens, or tries to control you? No 01/12/2024 Comments Unknown Sex and Gender Information Value Date Recorded Sex Assigned at Female 09/18/2020 8:27 AM EDT Legal Sex Female 11:58 AM EST Gender Identity Female 06/16/2020 7:34 AM EDT Sexual Orientation Lesbian or Lipscomb 06/16/2020 7: 34 AM EDT documented as of this encounter Plan of Treatment Upcoming Encounters Date Type Department Care Team (Late st Contact Info) Description 01/12/2026 4:00 PM EST Office Visit [facility] [address] [place] [phone] Arley Cardoza DO [address] [place] [phone] [email or web address] documented as of this encounter Procedures Procedure Name Priority Date/Time Associated Diagnosis Comments XR FOOT 3 OR MORE VIEWS (RIGHT) Urgent/patient waiting 05/07/2024 4:08 PM EST Right foot pain documented in this encounter Results * XR FOOT 3 OR MORE VIEWS (RIGHT) (05/07/2024 4:08 PM EST) Anatomical Region Laterality Modality Foot Right Computed Radiogr aphy 05/07/2024 4:35 PM EST Impressions 05/07/2024 4:39 PM EST FINDINGS/IMPRESSION: Subtle osseous irregularity seen along the lateral aspect of the calcaneus only on AP view of the foot. Correlate for focal tenderness on exam and consider dedicated radiographs of the ankle if indicated. Joint spaces are grossly maintained. Alignments are grossly maintained. The soft tissues are unremarkable. Narrative 05/07/2024 4:39 PM EST Procedure: XR FOOT 3 OR MORE VIEWS (RIGHT) Referring clinician's provided indication for this examination in [facility]: 28 years Female presenting with Pain; Trauma Comparison: None Procedure Note Joel Burks MD - 05/07/2024 Procedure: XR FOOT 3 OR MORE VIEWS (RIGHT) Referring clinician's provided indication for this examination in [facility]: 28years Female presenting with Pain; Trauma Comparison: None IMPRESSION: FINDINGS/IMPRESSION: Subtle osseous irregularity seen along the lateral aspect of the calcaneusonly on AP view of the foot. Correlate for focal tenderness on exam andconsider dedicated radiographs of the ankle if indicated. Joint spaces are grossly maintained. Alignments are grossly maintained.The soft tissues are unremarkable. April Meza [facility] XR LOWER EXTREMITY Final Result documented in this encounter Visit Diagnoses Not on filedocumented in this encounter Care Teams Senior Oracle Pl Sql Developer Relationship Specialty Start Date End Date Tunde Deal MD [address] [place] [address] Dr Lackey [address] [place] [phone] PCP - General Internal Medicine 03/17/20 documented as of this encounter Additional Source Comments The information contained in this document represents components of the legal health record. It is not the complete legal health record.[facility]
[2025-02-28 13:31] VITALS: BP 110/72; PULSE 93; O2SAT 97; BMI 41.3
--- NOTE | 2025-02-28 13:31 | A.OFFPC_ITS ---
Vital Signs 02/28/25 13:31 Height 5 ft 3 in Weight 233 lb BMI 41.3 BP 110/72 Blood Pressure Location Lt brachial Position Sitting Pulse 93 Pulse Source Pulse Oximeter Pulse Oximetry (%) 97 Oxygen Delivery Method Room Air Intake Visit Reasons: Rash in skin Compliance Examiner Required: No Accompanied by: Self / Same As Patient Allergies cat dander (CAT) Allergy (Unknown, Verified 02/28/25 13:31) ITCHY EYES SEASONAL ALLERGIES Allergy (Intermediate, Uncoded 02/28/25 13:31) ITCHY EYES Tobacco use date assessed: 02/28/25 Dental Screening Dental Screen Date: 02/28/25 Did you have a dental visit in the last 12 months?: Yes Did you have a dental problem in the last 6 months where you did not have access to dental care?: No Was dental information given to patient?: Patient has dentist HPI HPI Comments History of Present Illness Details The patient is a 29 year old female presenting for evaluation of a skin lesion on her left thigh. She reports that she has had a small skin tag on her inner thigh for some time, but it has increased in size and become painful over the last couple of weeks. The patient denies any itching or rash associated with the lesion and reports it is the only such lesion on her body. [facility] Medical History Vitamin D deficiency Tinea pedis Obesity (BMI 30-39.9) Anxiety Allergic rhinitis Asthma Graves' disease Seasonal allergies Hyperthyroidism Surgical History No pertinent past surgical history Family History Father Healthy adult Mother Healthy adult Maternal Grandmother Breast cancer Paternal Grandmother Breast cancer Maternal Aunt Breast cancer Social History Housing: Apartment Alcohol intake: never Patient Tobacco Use Status: Never used Tobacco e-Cigarette/Vaping Use: Never Used Second Hand Smoke Exposure: No service: No Current occupational status: employed Sexual orientation: Lesbian/Lipscomb/Homosexual Gender identity: Female Cognitive needs: No Hearing needs: No Vision needs: No Female Reproductive History Menstrual Age of Menarche: 13 Questionnaire PHQ-9 Over the last 2 weeks, how often have you been bothered by any of the following problems? 1. Little interest or pleasure in doing things: more than half the days 2. Feeling down, depressed, or hopeless: not at all 3. Trouble falling or staying asleep, or sleeping too much: not at all 4. Feeling tired or having little energy: several days 5. Poor appetite or overeating: not at all 6. Feeling bad about yourself - or that you are a failure or have let yourself or your family down: not at all 7. Trouble concentrating on things, such as reading the newspaper or watching television: not at all 8. Moving or speaking so slowly that other people could have noticed. Or the opposite - being so fidgety or restless that you have been moving around a lot more than usual: not at all 9. Thoughts that you would be better off or of hurting yourself in some way: not at all Total score: 3 Source: Developed by Drs. Max Mcdonald, Charito Ramirez, Allan Davis and colleagues, with an educational ob from [employer]. Thrive Questionnaire Date Thrive assessed: 02/28/25 What is your living situation today?: I have a steady place to live Within the past 12 months, did the food you bought not last and you didn't have the money to get more?: Never true Within the past 12 months, did you worry whether your food would run out before you got money to buy more?: Never true Do you have trouble paying for medicines?: No Do you have trouble getting transportation to medical appointments?: No Do you have trouble paying your heating and electricity bill?: No Do you have trouble taking care of your child, family member or friend?: No Do you have trouble with day-to-day activities such as bathing, preparing meals, shopping, managing finances, etc.?: No Are you currently unemployed and looking for a job?: No Are you interested in more education?: Yes Please select the resources that you would like help with: None Currently or been in a relationship where the following occur: No concerns reported THRIVE Score: 0 AUDIT C Alcohol Use Questionnaire (AUDIT-C) 1. How often do you have a drink containing alcohol?: Monthly or less 2. How many drinks containing alcohol do you have on a typical day when you are drinking?: 1 or 2 3. How often do you have six or more drinks on one occasion?: Never Total Score: 1 Score Reviewed/Action Taken: Yes CRISTÓBAL-7 AMB Questionnaire CRISTÓBAL-7 Date CRISTÓBAL - 7 assessed: 02/28/25 Feeling nervous, anxious, or on edge: 0 = Not at all Not being able to stop or control worryin = Not at all Worrying too much about different things: 0 = Not at all Trouble relaxin = Not at all Being so restless that it is hard to sit still: 0 = Not at all Becoming easily annoyed or irritable: 0 = Not at all Feeling afraid as if something awful might happen: 0 = Not at all Total CRISTÓBAL-7 score (0-4 normal; 5-9 mild; 10-14 moderate; 15-21 severe): 0 Source: Developed by Drs. Max Mcdonald, Charito Ramirez, Allan Davis and colleagues, with an educational bo from [employer]. Physical exam (Primary Care) Vital Signs: Last Vital Signs Pulse 93 02/28/25 13:31 BP 110/72 02/28/25 13:31 Pulse Ox 97 02/28/25 13:31 Oxygen Delivery Method Room Air 02/28/25 13:31 Examination of the left inner thigh reveals a single skin lesion, consistent in appearance with an acrochordon, measuring approximately 2 cm. No surrounding rash or other abnormalities are noted. BMI result Body Mass Index 41.3 Tobacco/Smoking Status: Tobacco use Status Tobacco use date assessed 02/28/25 02/28/25 13:37 Patient Tobacco Use Status Never used Tobacco 02/28/25 13:37 e-Cigarette/Vaping Use Never Used 02/28/25 13:37 PHQ-9: PHQ-9 Score PHQ-9: Total score 3 02/28/25 13:37 Thrive Assessment: Date of Thrive Assessment Date Thrive assessed 02/28/25 02/28/25 13:37 Currently or been in a relationship where the following occur: No concerns reported Coding Level of Care Code Est Pt Level 3 (02815) Diagnoses Skin tag L91.8 Assessment & Plan Assessment & Plan (1) Skin tag: Code(s): L91.8 - Other hypertrophic disorders of the skin Plan: The patient presents with a symptomatic skin tag on her left inner thigh that has increased in size to approximately 2 cm over the past few weeks and is now causing irritation. Referred to Dermatology placed for removal. Orders: Referrals Dermatology Referral L91.8 - Other hypertrophic disorders of the skin
--- OUTSIDE RECORDS SUMMARY | 2025-02-28 15:30 | XMS_ITS | Clinical Summary ---
Author Organization [employer] [facility] Address [address] [address] Phone Care Team Providers Care Immunology Specialist Name Role Phone Tunde Deal MD Primary Care Provider [phone] [phone] Allergies No known active allergies Medications triamcinolone [...] capsule by mouth every morning. 4 Active betamethasone valerate 0.1 % cream 5 Active methylPREDNISol one (MEDROL DOSEPACK) 4 mg tablet follow package directions 21 tablet 5 Active methIMAzole (TAPAZOLE) 5 MG tabletIndicatio ns:Graves' disease Take 0.5 tablets (2.5 mg total) by mouth daily. 45 tablet 3 5 Active Active Problems Problem Noted Date Diagnosed Date Moderate persistent asthma 11/26/2023 Eczema 11/26/2023 Class 1 obesity 11/26/2023 Graves' disease 04/19/2020 Assessment & Plan (01/11/2025 2:01 PM EST): The patient has Graves' disease and she has been stable on methimazole 2.5 mg for the last 4 years and 10 months. Unfortunately she did not repeat thyroid function studies prior to this visit again. She was reminded that she really should make an effort to do the blood work prior to the visit. So at this point she is going to have to get the lab work done after the visit. Once I receive the results I will see if she should continue on the current dose of medication whether we will have to adjust the medications. Since she has been stable so far. I will schedule her for follow-up visit in a year. However if the results are not within the reference range then she should return for follow-up in 3 months time. Addendum the patient has not done lab work yet so I am going to close out the note. I suppose that eventually she will get the lab work done and at that point I can send medications. Assessment & Plan (01/13/2024 2:34 PM EST): [...] Nontoxic uninodular goiter 04/19/2020 Assessment & Plan (01/10/2025 4:05 PM EST): Repeat thyroid ultrasound by 12/30/2026. Assessment & Plan (01/12/2024 4:16 PM EST): [...] request an ultrasound to be done at [facility] on 12/26/2020. this for monitoring of nodular growth. 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 Encounters Date Type Department Care Team Description 01/17/2025 Orders Only [facility] [address] [place] [address] [place] [address] Arley Cardoza DO Graves' disease 01/10/2025 4:00 PM EST Office Visit [facility] [address] [place] [address] [place] [address] Arley Cardoza DO Nontoxic uninodular goiter (Primary Dx); Graves' disease from Last 3 Months Family History Medical [...] Sign Reading Time Taken Comments Blood Pressure 133/78 01/10/2025 4:06 PM EST Pulse 88 01/10/2025 4:06 PM EST Temperature 36.7 C (98 F) 11/15/2024 1:18 PM EDT Respiratory Rate 18 11/15/2024 1:18 PM EDT Oxygen Saturation 99% 11/15/2024 1:18 PM EDT Inhaled Oxygen Concentration - - Weight 104.8 kg (231 lb) 01/10/2025 4:06 PM EST Height 157.5 cm (5' 2 ) 01/12/2024 7:24 PM EST Body Mass Index 42.25 01/12/2024 7:24 PM EST Plan of Treatment Upcoming Encounters Date Type Department Care Team (Late st Contact Info) Description 01/12/2026 4:00 PM EST Office Visit [facility] [address] [place] [address] Arley Cardoza DO [address] [place] [address] [email or web address] Health Maintenance Due Date Last Done Comments [...] Procedure Name Priority Date/Time Associated Diagnosis Comments FREE T4 Routine 01/13/2025 9:12 AM EST Graves' disease THYROID STIMULATING HORMONE (TSH) Routine 01/13/2025 9:12 AM EST Graves' disease from Last 3 Months Results * Thyroid Stimulating Hormone (TSH) (01/13/2025 9:12 AM EST) TSH 1.00 0.40 - 5.00 uIU/mL 01/13/2025 5:43 PM EST [facility] Blood (Blood) Venipuncture / Unknown 01/13/2025 9:12 AM EST 01/13/2025 9:12 AM EST Arley Cardoza DO LAB BLOOD BKR ORDERABLES Final R esult [facility] [address] [place] [address] * T4, Free (01/13/2025 9:12 AM EST) T4, Free 1.5 0.9 - 1.8 ng/dL 01/13/2025 5:43 PM EST [facility] Blood (Blood) Venipuncture / Unknown 01/13/2025 9:12 AM EST 01/13/2025 9:12 AM EST us Arley Cardoza DO LAB BLOOD BKR ORDERABLES Final R esult [address] [address] from Last 3 Months Insurance O O O Care Teams Immunology Specialist Relationship Specialty Start Date End Date Tunde Deal MD [address] [place] [address] [address] [place] [address] PCP - General Internal Medicine 03/17/20 Additional Source Comments The information contained in this document represents components of the legal health record. It is not the complete legal health record.[facility]
--- OUTSIDE RECORDS SUMMARY | 2025-02-28 15:30 | XMS_ITS | Encounter Summary ---
Author Organization [facility] Address [address] [place] [address] Phone Care Team Providers Care Turbinated Bone Grinder Name Role Phone Tunde Deal MD Primary Care Provider [phone] [phone] Encounter Details Date Type Department Care Team (Late Contact Info) Description 01/01/2021 Procedure Pass [facility], [address] [address] Social History Tobacco Use Types Packs/Day Years [...] Department Care Team (Late Contact Info) Description 01/12/2026 4:00 PM EST Office Visit [facility] [address] [place] [address] Arley Cardoza DO [address] [place] [address] documented as of this encounter Visit Diagnoses Not on filedocumented in this encounter Additional Health Concerns Infection Onset Date Last Indicated Resolved Time CoV-Risk 01/01/2022 01/01/2022 01/12/2022 6:51 AM EST Influenza B 01/17/2023 01/17/2023 01/24/2023 1:22 AM EST CoV-Risk 11/26/2023 11/26/2023 12/07/2023 1:21 AM EDT documented as of this encounter Care Teams Turbinated Bone Grinder Relationship Specialty Start Date End Date Tunde Deal MD [address] [place] [address] [place] [address] PCP - General Internal Medicine 03/17/20 documented as of this encounter Additional Source Comments The information contained in this document represents components of the legal health record. It is not the complete legal health record.[facility]
== END 2025-02-28 13:56 | disposition home or self-care (01) ==
PROVIDERS: PCP Internal Medicine; Visit Provider Student in an Organized Health Care Education/Training Program
DX: L91.8 Other hypertrophic disorders of the skin (principal)